=== PATIENT | female | born 1940 | race Caucasian/White ===

== ENCOUNTER 2025-01-20 13:29 | Inpatient (IN) ==
--- NOTE | 2025-01-20 14:03 | Emergency Department Note ---
Impression & Plan Atrial fibrillation with rapid ventricular response, Chest pain ED Provider Note NAME: BULMARO DONOHUE AGE: 84 SEX: F : 1940 ARRIVES VIA: Ambulance INFORMANT: Patient, family ED PROVIDER(S): Obdulio Dela Cruz MD CHIEF COMPLAINT: Chest pain MEDICAL DECISION MAKING: Patient presents due to concern for chest pain. IV was established and blood work was obtained. No active chest pain at the bedside. Patient was ordered home dose metoprolol succinate 100 mg p.o. as well as 5 mg IV of Lopressor. The patient did have slight improvement in her rate. No further chest pain. The patient has a normal white count H&H and platelet count kidney function is unremarkable. The patient was requesting to go home. Given the patient's relatively unchanged EKG do not think unreasonable to repeat troponin and reassess. Repeat troponin downward trending. I did speak the on-call cardiology service Dr. Morrow and after reviewing the patient's EKG stated that given the patient has had persistent elevated rates does recommend admission and treatment. Patient was ordered her evening dose of metoprolol succinate 50 mg as additional IV Lopressor. Critical Care: I have personally spent 37 minutes of critical care time in direct management of this patient. This includes bedside care, interpretation of diagnostic studies, and testing, discussion with consultants, patient, and family members, and other require inpatient management activities. This 37 minutes is in excess of all separately billable procedures. Discussion w/ other healthcare providers: Dr. Morrow cardiology Dr. Delgado inpatient medicine service Prior /Outside records reviewed: I reviewed part of a discharge summary from March 14, [address] Pierson. History of hypertension hyperlipidemia history of atypical chest pain with negative prior stress testing. A-fib tachybradycardia syndrome dual-chamber pacemaker who presented with chest pains and rapid A-fib. Patient did have an echo at that time which showed mild concentric LVH LV wall motion normal LV systolic function normal LVEF of 6065%. Patient did receive Cardizem and subsequently converted to sinus rhythm was to continue outpatient metoprolol 100 mg in the morning 50 in the evening also on Eliquis. Differential diagnosis: Cardiac ischemia, aortic dissection, pulmonary embolism, pneumothorax, pneumonia, pericarditis, myocarditis, GERD, cholecystitis, pancreatitis, musculoskeletal, as well as other pathologies were considered. Diagnostics, as interpreted by me: ECG: A-fib RVR, rate of 131, normal QRS duration, normal axis. No obvious ST elevations. T wave version in aVL. Possible Q wave inferiorly.Patient's EKG she has a change from being primarily paced to the A-fib with RVR. Overall morphology looks grossly unchanged from prior. T wave version in aVL appears old. A-fib RVR, rate of 119, normal QRS duration, left axis deviation, T wave version high lateral leads. No obvious STEMI. Cardiac monitoring: An order was placed for continuous cardiac monitoring. The monitor shows a rate of 116 with tachycardic and irregular irregular rhythm. Patient was placed on pulse oximetry Medical decision rules: none Imaging studies: I informally interpreted the patient's chest x-ray does not show obvious pneumonia or pneumothorax with formal report to follow. HPI: Patient presents due to concern for chest pains. The patient states that she was doing housework when she developed chest pain around 945 this morning. The patient states that she sat down to see if this would improve on its own but did not improve this calling 911. She states that 911 was busy but eventually did come to the house. They noted your to be 90% on room air. per nursing report they stated that maybe the patient had some dyspnea on exertion on the patient denies this at the bedside. No reported PND. She does follow with Yuliana Dye with cardiology through [facility]. Patient did not take her morning medications. The patient's chest pain was left-sided with radiation to central area heaviness. The patient states that its peak it was 10 out of 10. The patient did receive 324 of aspirin and 1 nitro as well as 0.25 of Ativan IV and currently has no chest pains. Patient states that she always have a little bit of right leg swelling when compared to the left but this is unchanged. No recent surgeries procedures or hospitalizations no recent prolonged car plane travel. Patient reportedly does have a history of anxiety. She denies any cough or fever. PAST MEDICAL HISTORY: See Below PAST SURGICAL HISTORY: See Below SOCIAL HISTORY: See Below HOME MEDICATIONS: See Below ALLERGIES: See Below VITALS: See Below PHYSICAL EXAMINATION: GENERAL: NAD, non-toxic. EYE EXAM: Normal conjunctiva. PERRL, no anisocoria and EOM's grossly intact w/o pain. OROPHARYNX: Moist mucus membranes, grossly normal dentition. NECK: Trachea midline, no stridor. Supple, no nuchal rigidity, no adenopathy, non-tender. No signs of meningismus. FROM of the neck with good chin to chest and neck extension. LUNGS: Clear to auscultation. Normal chest wall mechanics. HEART: Tachycardic and irregular irregular, no MRG. ABDOMEN: Abdomen soft, non-tender, no masses, no rebound or guarding. BACK: No CVA TTP. SKIN: No rashes and no bruising. UPPER EXTREMITIES: Upper extremities are grossly normal. LOWER EXTREMITIES: Grossly normal, no edema. No obvious asymmetry, negative Homans' sign bilaterally. NEURO EXAM: A&O x3, cranial nerves II-XII grossly intact, normal speech, moves all 4 extremities. Past Med/Surg History Problem List (Updated 01/20/25 @ 22:34 by Obdulio Dela Cruz MD) Chest pain (Acute) Atrial fibrillation with rapid ventricular response (Acute) Elevated brain natriuretic peptide (BNP) level (Acute) Atrial fibrillation with rapid ventricular response (Acute) Chest pain (Acute) Sensorineural hearing loss (SNHL) of left ear with restricted hearing of right ear Vertigo Sudden-onset sensorineural hearing loss Tachy-shahram syndrome Atrial fibrillation Vaginal prolapse Prolapse of bladder Hyperlipidemia Hypertension Hematuria Surgical History H/O: hysterectomy History of dilatation and curettage Hx of appendectomy Family History Mother Hypertension Father Bladder cancer Stomach cancer Son Kidney stones Social History Smoking Status: Never smoker Tobacco Type: Cigarettes Second Hand Exposure: No; Do You Dip or Chew Tobacco: No; Hx Alcohol Use: No Hx Substance Use: No Preferred Language: Armenian Communication Ability: Effective Reception Manager Required: No Beliefs That Will Affect Care: None Current Living Situation: Alone Feels Safe at Home: Yes Assistive Devices: Cane and Walker Allergies Allergies Allergy/AdvReac Type Severity Reaction Status Date / Time No Known Allergies Allergy Verified 01/20/25 18:15 Home Meds Home Medications Medication Instructions Recorded Confirmed amlodipine 5 mg tablet 5 mg PO DAILY 03/12/24 01/20/25 apixaban 5 mg tablet (Eliquis) 5 mg PO BID 03/12/24 01/20/25 hydrochlorothiazide 12.5 mg capsule 12.5 mg PO DAILY 03/12/24 01/20/25 losartan 100 mg tablet 100 mg PO DAILY 03/12/24 01/20/25 potassium citrate 10 mEq (1,080 10 meq PO DAILY 03/12/24 01/20/25 mg) tablet,extended release B-complex with vitamin C 1 tab PO DAILY 01/20/25 01/20/25 atorvastatin 40 mg tablet 40 mg PO DAILY 01/20/25 01/20/25 Previous Rx's Medication Instructions Recorded metoprolol succinate 100 mg 100 mg PO QAM #30 tabs 03/14/24 tablet,extended release 24 hr metoprolol succinate 50 mg 50 mg PO HS #30 tabs 03/14/24 tablet,extended release 24 hr Results & Data (ED) Vital Signs Vital Signs - 24 hr 01/20/25 13:45 01/20/25 13:50 01/20/25 13:50 Temperature 36.9 C Temperature Source Temporal Artery Scan Pulse Rate 120 H Pulse Rate [Right Brachial] Pulse Rate from SpO2 Sensor Pulse Rhythm [Right Brachial] Pulse Strength [Right Brachial] Respiratory Rate 24 Respiratory Effort / Characteristics SOB on Exertion SOB on Exertion Respiratory Depth Respiratory Pattern Blood Pressure 133/78 Blood Pressure [Right Arm] Blood Pressure Mean 96 Blood Pressure Mean [Right Arm] Blood Pressure Position [Right Arm] Pulse Oximetry 93 Oxygen Delivery Method Room Air Room Air Sepsis Recent Fever Within 48 Hours No Sepsis New/Unexplained Change in Mental Status No Sepsis Action Taken by Nursing No Action Required 01/20/25 14:08 01/20/25 14:13 01/20/25 14:23 Temperature Temperature Source Pulse Rate 121 H 127 H Pulse Rate [Right Brachial] Pulse Rate from SpO2 Sensor Pulse Rhythm [Right Brachial] Pulse Strength [Right Brachial] Respiratory Rate Respiratory Effort / Characteristics Respiratory Depth Respiratory Pattern Blood Pressure 133/78 Blood Pressure [Right Arm] Blood Pressure Mean Blood Pressure Mean [Right Arm] Blood Pressure Position [Right Arm] Pulse Oximetry 92 Oxygen Delivery Method Room Air Sepsis Recent Fever Within 48 Hours Sepsis New/Unexplained Change in Mental Status Sepsis Action Taken by Nursing 01/20/25 14:30 01/20/25 14:39 01/20/25 15:44 Temperature Temperature Source Pulse Rate 106 H Pulse Rate [Right Brachial] 126 H Pulse Rate from SpO2 Sensor 83 Pulse Rhythm [Right Brachial] Regular Pulse Strength [Right Brachial] Normal Respiratory Rate 20 20 Respiratory Effort / Characteristics Non-Labored Respiratory Depth Normal Respiratory Pattern Regular Blood Pressure 91/72 L Blood Pressure [Right Arm] 143/71 H Blood Pressure Mean 85 Blood Pressure Mean [Right Arm] 95 Blood Pressure Position [Right Arm] Lying Pulse Oximetry 93 95 Oxygen Delivery Method Room Air Sepsis Recent Fever Within 48 Hours Sepsis New/Unexplained Change in Mental Status Sepsis Action Taken by Nursing 01/20/25 17:00 01/20/25 17:02 Temperature Temperature Source Pulse Rate 118 H Pulse Rate [Right Brachial] 116 H Pulse Rate from SpO2 Sensor Pulse Rhythm [Right Brachial] Regular Pulse Strength [Right Brachial] Normal Respiratory Rate 18 Respiratory Effort / Characteristics Non-Labored Respiratory Depth Normal Respiratory Pattern Regular Blood Pressure 98/80 L Blood Pressure [Right Arm] 98/80 L Blood Pressure Mean Blood Pressure Mean [Right Arm] 86 Blood Pressure Position [Right Arm] Lying Pulse Oximetry 95 Oxygen Delivery Method Room Air Sepsis Recent Fever Within 48 Hours Sepsis New/Unexplained Change in Mental Status Sepsis Action Taken by Alf Medications Current Medication List: was personally reviewed by me Laboratory Data Attestation: I reviewed the patient's lab results. 01/20/25 Unknown 01/20/25 Unknown Lab Results 01/20/25 01/20/25 01/20/25 Range/Units 14:37 14:41 17:10 PT 10.9 (9.0-12.0) Seconds INR 1.0 (0.9-1.1) APTT 30 (21-31) Seconds PTT Ratio 1.1 Potassium 3.9 (3.5-5.1) mmol/L AST 18 (13-39) U/L Troponin I High Sens 8.5 (0-14) pg/ml Administered Medications Discontinued Medications Metoprolol Succinate (Metoprolol Succ 50mg Ext Rel Tab) 100 mg PO NOW STA Stop: 01/20/25 14:11 Last Admin: 01/20/25 14:42 Dose: 100 mg Documented By: DAYAN Metoprolol Succinate (Metoprolol Succ 50mg Ext Rel Tab) 50 mg PO NOW STA Stop: 01/20/25 18:35 Last Admin: 01/20/25 19:38 Dose: 50 mg Documented By: SHELL Metoprolol Tartrate (Metoprolol Tartrate 1 Mg/Ml Vial) 5 mg IV NOW STA Stop: 01/20/25 14:11 Last Admin: 01/20/25 14:23 Dose: 5 mg Documented By: DAYAN Metoprolol Tartrate (Metoprolol Tartrate 1 Mg/Ml Vial) 5 mg IV NOW STA Stop: 01/20/25 16:55 Last Admin: 01/20/25 17:02 Dose: 5 mg Documented By: SHELL Metoprolol Tartrate (Metoprolol Tartrate 1 Mg/Ml Vial) 5 mg IV NOW STA Stop: 01/20/25 18:35 Last Admin: 01/20/25 18:54 Dose: 5 mg Documented By: SHELL Imaging Data Radiologist's Impression: Chest X-Ray 01/20/25 13:45 XR chest 1V portable CLINICAL HISTORY: Chest pain, nonspecific COMPARISON STUDY: Chest radiograph March 12, 2024. FINDINGS: Left subclavian pacer is in place. Cardiomegaly is unchanged. There is pulmonary vascular congestion. No consolidation is identified to suggest pneumonia. There is no pneumothorax or pleural effusion. IMPRESSION: Cardiomegaly with pulmonary vascular congestion. ACT 112: Negative or not required by law. Electronically signed by: Wilman Sabillon M.D. 01/20/2025 2:47 PM Discharge Plan Visit Data Chief Complaint: Chest Pain Stated Complaint: CHEST PAIN, ANXIETY ED Provider: Obdulio Dela Cruz Discharge Problem: Atrial fibrillation with rapid ventricular response, Chest pain Discharge Problem: Chest pain Qualifiers: Chest pain type: unspecified Qualified Code(s): R07.9 - Chest pain, unspecified
[2025-01-20] MEDS: METOPROLOL TARTRATE 1 MG/ML VIAL IV STA ×3 (14:23→18:54)
[2025-01-20 14:35] LABS: Basophils # (auto) 0.06 K/uL (0.00-0.20); Basophils % (auto) 0.7 %; Eosinophils # (auto) 0.15 K/uL (0.00-0.50); Eosinophils % (auto) 1.8 %; Hematocrit (blood only) 43.2 % (37.0-47.0); Hemoglobin 14.3 g/dl (12.0-16.0); Immature Granulocytes # (auto) 0.01 K/uL (0.01-0.20); Immature Granulocytes % (auto) 0.1 %; Lymphocytes # (auto) 1.07 K/uL (1.20-3.40); Lymphocytes % (auto) 12.8 %; Mean Corpuscular Hemoglobin 28.9 pg (25.0-34.0); Mean Corpuscular Hgb Conc 33.1 g/dL (32.0-36.0); Mean Corpuscular Volume 87.3 fL (80.0-100.0); Mean Platelet Volume 12.3 fL (9.4-12.4); Monocytes # (auto) 0.67 K/uL (0.11-0.59); Neutrophils # (auto) 6.43 K/uL (1.40-6.50); Neutrophils % (auto) 76.6 %; Platelet Count 148 K/uL (130-400); Platelet Estimate Normal (Normal); RDW Coefficient of Variation 13.4 % (11.5-14.5); RDW Standard Deviation 42.4 fL (36.4-46.3); Red Blood Count 4.95 M/uL (4.20-5.40); White Blood Count 8.39 K/ul (4.8-10.8)
[2025-01-20 14:37] LABS: Alanine Aminotransferase 17 U/L (7-52); Albumin Globulin Ratio 1.2 (0.9-2); Albumin Level 4.3 gm/dl (3.4-5.0); Alkaline Phosphatase 47 U/L (34-104); Anion Gap 5 (3-11); BUN Creatinine Ratio 20.8 (10-20); Blood Urea Nitrogen 20 mg/dl (6-23); Calcium 9.9 mg/dl (8.6-10.3); Carbon Dioxide 28 mmol/L (21-32); Chloride 106 mmol/L (98-107); Creatinine Clr Calc Pharmacy 47.2 ml/min; Globulin 3.6 gm/dl (2.5-4.0); Glucose 114 mg/dl (70-99(Fasting)); Magnesium 2.1 mg/dl (1.7-2.4); Sodium 139 mmol/L (136-145); Total Protein 7.9 gm/dl (6.0-8.3)
[2025-01-20 14:41] LABS: Troponin I High Sensitivity 5.4 pg/ml (0-14)
[2025-01-20] MEDS: METOPROLOL SUCC 50MG EXT REL TAB PO STA ×2 (14:42→19:38)
--- NOTE | 2025-01-20 14:48 | XRay Report ---
XR chest 1V portable CLINICAL HISTORY: Chest pain, nonspecific COMPARISON STUDY: Chest radiograph March 12, 2024. FINDINGS: Left subclavian pacer is in place. Cardiomegaly is unchanged. There is pulmonary vascular c ongestion. No consolidation is identified to suggest pneumonia. There is no pneumothorax or pleural e ffusion. IMPRESSION: Cardiomegaly with pulmonary vascular congestion. ACT 112: Negative or not required by law. Electronically signed by: Wilman Sabillon M.D. 01/20/2025 2:47 PM
--- NOTE | 2025-01-20 15:33 | Electrocardiogram Report ---
Test Reason : Blood Pressure : */* mmHG Vent. Rate : 131 BPM Atrial Rate : * BPM P-R Int : * ms QRS Dur : 86 ms QT Int : 314 ms P-R-T Axes : * -23 134 degrees QTcB Int : 463 ms Atrial fibrillation with rapid ventricular response Left ventricular hypertrophy with repolarization abnormality Poor R wave progression, consider anterior LA vs. lead placement vs. LVH Abnormal ECG When compared with ECG of 14-Mar-2024 05:43, Atrial fibrillation has replaced Sinus rhythm Vent. rate has increased by 65 bpm Confirmed by Adam Downey ([id number]) on 01/20/2025 3:32:46 PM Referred By: Confirmed By: Adam Downey
[2025-01-20 15:41] LABS: Potassium 3.9 mmol/L (3.5-5.1)
[2025-01-20 15:52] LABS: Partial Thromboplastin Ratio 1.1; Partial Thromboplastin Time 30 Seconds (21-31); Prothrombin Time 10.9 Seconds (9.0-12.0)
[2025-01-20 18:15] LABS: Thyroid Stimulating Hormone 1.127 uIu/ml (0.300-4.500)
--- NOTE | 2025-01-20 18:57 | History & Physical Report ---
Date of Service January 20, 2025 Assessment & Plan (1) Atrial fibrillation with rapid ventricular response: Plan Pt is an 84year-old female with past medical history significant for labile hypertension, hyperlipidemia, history of atypical chest pain with negative stress testing, history of paroxysmal atrial fibrillation, tachybradycardia syndrome s/p dual-chamber pacemaker on September 23, 2022, history of acute vertigo, Menieres who presented with concern for chest pain. Chest Pain Atrial fibrillation with RVR Hx of tachybradycardia syndrome s/p dual-chamber pacemaker Pt presenting with chest pain EKG noting atrial fibrillation with RVR Trop x2 negative, downtrending Echo from 2023 reviewed, consider update TSH normal Pt notes she did not take home metoprolol today In the ED, received three doses of Lopressor 5mg IV and oral dose of total Topr ol XL 150mg received aspirin, nitro and Ativan en route to the hospital with improvement of her chest pain Holding home Eliquis tonight, started on IV heparin Cardiology consulted, appreciate recs Hypertension Pt on metoprolol 100mg in AM and 50mg in PM, amlodipine 5mg, HCTZ 12.5mg and losartan 100mg daily BP trending lower Holding AM HCTZ and losartan- monitor BP and resume as soon as able Continue other home meds as ordered Diet: HH DVT prophylaxis: On heparin, holding home Eliquis CODE STATUS: wants CPR and defib but DNI Dispo: admit to PCU/tele History of Present Illness Chief Complaint: chest pain Primary Care Provider: Daniel Madrid DO Pt is an 84year-old female with past medical history significant for labile hypertension, hyperlipidemia, history of atypical chest pain with negative stress testing, history of paroxysmal atrial fibrillation, tachybradycardia syndrome s/p dual-chamber pacemaker on September 23, 2022, history of acute vertigo, Menieres who presented with concern for chest pain. Patient states that she was active this morning when the chest pain started and it was not relieved with rest. States she did not take her medications this morning. Did call 911 to take her to the hospital and she did receive Ativan, aspirin and nitro with noted improvement in her symptoms. She also received multiple doses of IV Lopressor 5 mg in the emergency room as well as her home po metoprolol dosing for the day. At the time of exam she was resting comfortably and denied acute concerns. Prior to ED, cardiology was consulted and contacted and recommended admission for further evaluation and management. Allergies Allergy/AdvReac Type Severity Reaction Status Date / Time No Known Allergies Allergy Verified 01/20/25 18:15 Home Medications Medication Instructions Recorded Confirmed Type amlodipine 5 mg tablet 5 mg PO DAILY 03/12/24 01/20/25 History apixaban 5 mg tablet (Eliquis) 5 mg PO BID 03/12/24 01/20/25 History hydrochlorothiazide 12.5 mg capsule 12.5 mg PO DAILY 03/12/24 01/20/25 History losartan 100 mg tablet 100 mg PO DAILY 03/12/24 01/20/25 History potassium citrate 10 mEq (1,080 10 meq PO DAILY 03/12/24 01/20/25 History mg) tablet,extended release metoprolol succinate 100 mg 100 mg PO QAM #30 tabs 03/14/24 01/20/25 Rx tablet,extended release 24 hr metoprolol succinate 50 mg 50 mg PO HS #30 tabs 03/14/24 01/20/25 Rx tablet,extended release 24 hr B-complex with vitamin C 1 tab PO DAILY 01/20/25 01/20/25 History atorvastatin 40 mg tablet 40 mg PO DAILY 01/20/25 01/20/25 History Past Med/Surg History Problem List (Updated 04/14/24 @ 00:07 by Carine Daemon) Elevated brain natriuretic peptide (BNP) level (Acute) Atrial fibrillation with rapid ventricular response (Acute) Chest pain (Acute) Sensorineural hearing loss (SNHL) of left ear with restricted hearing of right ear Vertigo Sudden-onset sensorineural hearing loss Tachy-shahram syndrome Atrial fibrillation Vaginal prolapse Prolapse of bladder Hyperlipidemia Hypertension Hematuria Surgical History H/O: hysterectomy History of dilatation and curettage Hx of appendectomy Family History Mother Hypertension Father Bladder cancer Stomach cancer Son Kidney stones Social History Smoking Status: Never smoker Tobacco Type: Cigarettes Second Hand Exposure: No; Do You Dip or Chew Tobacco: No; Hx Alcohol Use: No Hx Substance Use: No Preferred Language: Mohawk Communication Ability: Effective Personnel Director Required: No Beliefs That Will Affect Care: None Current Living Situation: Alone Feels Safe at Home: Yes Assistive Devices: Cane and Walker Review of Systems Review of Systems: All systems reviewed & are unremarkable except as noted in Subjective Physical Exam Physical Exam: General: Alert, oriented. No acute distress Skin: No noted rashes or bruises Psych: Appropriate mood and affect HEENT: NC/AT Chest: Nontender to palpation. CV: irregular Resp: Breath sounds clear bilaterally, no increased effort of breathing Abdomen: Soft, nontender Extremities: Trace edema in lower extremities bilaterally. Results & Data Results & Data Vital Signs (Past 12 Hours) Vital Signs Temp Pulse Pulse Resp BP BP Pulse Ox 01/20/25 17:02 118 H 98/80 L 01/20/25 17:00 116 H 18 98/80 L 95 01/20/25 15:44 126 H 20 143/71 H 95 01/20/25 14:39 106 H 20 93 01/20/25 14:30 91/72 L 01/20/25 14:23 127 H 133/78 01/20/25 14:13 121 H 01/20/25 14:08 92 01/20/25 13:50 36.9 C 120 H 24 133/78 93 01/20/25 13:45 O2 Del Method 01/20/25 17:02 01/20/25 17:00 Room Air 01/20/25 15:44 Room Air 01/20/25 14:39 01/20/25 14:30 01/20/25 14:23 01/20/25 14:13 01/20/25 14:08 Room Air 01/20/25 13:50 Room Air 01/20/25 13:45 Room Air
--- OUTSIDE RECORDS SUMMARY | 2025-01-21 00:01 | External Medical Summary | Summary of Care ---
Author Name Unknown Organization [facility] Address [address] [place] [address] Phone [phone] Care Team Providers Care Hydrostatic Tester Name Role Phone CheleDaniel de jesus Primary Care Provider +1 [phone] Reason for Visit * Reason Comments Outpatient Testing Encounter Details Date Type Department Care Team (Late st Contact Info) Description 01/04/2025 8:40 AM EDT Laboratory Laboratory [address] [place] [address] [facility] Lab [address] [place] [address] Gouty nephropathy; Dyslipidemia, goal LDL below 160; SAPHO syndrome (HCC); HTN, goal below 140/90 Allergies No known active allergiesdocumented as of this encounter (statuses as of 01/04/2025) Medications Atorvastatin Calcium 40 MG Oral Tablet 1 tablet daily Act anum Estrogens, Conjugated 0.625 MG/GM Vaginal Cream (Premarin) Administer 0.5 g into the vagina once a day Thursday and only. Use 0.5 g with applicator at bedtime 30 g 6 1 Active LORazepam 0.5 MG Oral Tablet (Ativan) 2 Active Potassium Citrate ER 10 MEQ (1080 MG) Oral Tablet Extended Release (Urocit-K) Take 1 Tablet by mouth every other day. 2 Active Calcium+D3 600-20 MG-MCG Oral Tablet (Calcium Carb-Cholecalcife rol) Take by mouth 1 Tablet daily . Active Losartan Potassium 100 MG Oral Tablet (Cozaar) Take 1 Tablet by mouth in the morning. 4 Active Metoprolol Succinate ER 50 MG Oral Tablet Extended Release 24 Hour (Toprol XL) Take 2 Tablets by mouth daily AND 1 Tablet at bedtime. 270 Tablet 3 4 Active Apixaban 5 MG Oral Tablet (Eliquis)Indicati ons:Paroxysmal atrial fibrillation (HCC) Take 1 Tablet by mouth in the morning and 1 Tablet before bedtime. 180 Tablet 3 4 Active amLODIPine Besylate 5 MG Oral Tablet (Norvasc)Indicati ons:HTN, goal below 140/90 Take 1 Tablet by mouth in the morning. 90 Tablet 3 4 Active hydroCHLOROthiazi de 12.5 MG Oral CapsuleIndication s:Paroxysmal atrial fibrillation (HCC),Tachy-shahram syndrome (HCC),Cardiac pacemaker in situ,HTN, goal below 140/90,Hyperlipem ia, mixed,Vertigo Take 1 Capsule by mouth in the morning. 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 Cystocele, lateral 08/27/2020 Rectocele 08/27/2020 Vaginal atrophy 08/27/2020 Feeling of incomplete bladder emptying 0 Constipation 08/27/2020 documented as of this encounter (statuses as of 01/04/2025) Social History Tobacco Use Types Packs/Day Years Used Date Smoking Tobacco: Former Smokeless Tobacco: Never Alcohol Use Standard Drinks/Week Comments No 0 (1 standard drink = 0.6 oz pur e alcohol) Comments Unknown Sex and Gender Information Value Date Recorded Sex Assigned at Not on file Legal Sex Female 5:27 AM EST Gender Identity Not on file Sexual Orientation Not on file documented as of this encounter Plan of Treatment Pending Results Name Type Priority Associated Diagnoses Date /Time BASIC METABOLIC PANEL Lab Routine Gouty nephropathy Dyslipidemia, goal LDL below 160 SAPHO syndrome (HCC) HTN, goal below 140/90 01/04/2025 8:44 AM EDT LDL CHOLESTEROL (DIRECT MEASURE) Lab Routine Gouty nephropathy Dyslipidemia, goal LDL below 160 SAPHO syndrome (HCC) HTN, goal below 140/90 01/04/2025 8:44 AM EDT HEPATIC FUNCTION PANEL Lab Routine Gouty nephropathy Dyslipidemia, goal LDL below 160 SAPHO syndrome (HCC) HTN, goal below 140/90 01/04/2025 8:44 AM EDT LIPID PANEL WITH DIRECT LDL IF TG IS HIGH Lab Routine Gouty nephropathy Dyslipidemia, goal LDL below 160 SAPHO syndrome (HCC) HTN, goal below 140/90 01/04/2025 8:44 AM EDT TSH Lab Routine Gouty nephropathy Dyslipidemia, goal LDL below 160 SAPHO syndrome (HCC) HTN, goal below 140/90 01/04/2025 8:44 AM EDT CBC WITH WBC DIFFERENTIAL Lab Routine Gouty nephropathy Dyslipidemia, goal LDL below 160 SAPHO syndrome (HCC) HTN, goal below 140/90 01/04/2025 8:44 AM EDT CBC Lab Routine Gouty nephropathy Dyslipidemia, goal LDL below 160 SAPHO syndrome (HCC) HTN, goal below 140/90 01/04/2025 8:44 AM EDT DIFFERENTIAL, AUTOMATED Lab Routine Gouty nephropathy Dyslipidemia, goal LDL below 160 SAPHO syndrome (HCC) HTN, goal below 140/90 01/04/2025 8:44 AM EDT Health Maintenance Due Date Last Done Comments Depression Screening 1952 Albumin/Creatinine Ratio 1958 DTap/Tdap Vaccines (1 - Tdap) 1959 Zoster Vaccines (1 of 2) 1990 COVID-19 Vaccine (1 - season) 2024 Influenza Vaccine (FLU shot) (#1) 2024 GFR 08/05/2025 08/05/2024, 12/2023, 12/28/2023, Additional history exists DXA Scan 10/28/2029 10/28/2022, 03/2022, 02/05/2017 Pneumococcal Vaccine: 50+ Years Completed 02/08/2018, 11/23/2015, 01/02/2004 HPV (Gardasil) Vaccine Aged Out No lo nger eligible based on patient's age to complete this topic Hepatitis B Vaccine Aged Out No longe r eligible based on patient's age to complete this topic MENINGOCOCCAL (MENACTRA/MENVEO) Aged Out No longer eligible based on patient's age to complete this topic Meningitis B Vaccine (Bexsero/Trumemba) Aged Out No longer eligible based on patient's age to complete this topic documented as of this encounter Medical Devices Not on filedocumented as of this encounter Visit Diagnoses Diagnosis Gouty nephropathy Gouty nephropathy, unspecified Dyslipidemia, goal LDL below 160 Other and unspecified hyperlipidemia SAPHO syndrome (HCC) Traumatic spondylopathy HTN, goal below 140/90 Unspecified essential hypertension documented in this encounter Care Teams Hydrostatic Tester Relationship Specialty Start Date End Date Daniel Madrid DO [address] [id number] PCP - General Family Medicine 08/27/20 documented as of this encounter
--- OUTSIDE RECORDS SUMMARY | 2025-01-21 00:02 | External Medical Summary ---
Author Name Unknown Address Unknown Organization [id number]:[place] [facility] [place] [address] [place] [address] Laboratory Report Ordering Provider Test Date Status POLLY CARUSO 01/04/2025 08:44:43 Final Observation Date Value Abnormality Reference (Units ) Status BUN 01/04/2025 08:44:43 22 Above high normal 6-20 (mg/dL) Final Creatinine 01/04/2025 08:44:43 0.9 0.5-1.0 (mg/dL) Final Glomerular filtration rate/1.73 sq M.predicted [Volume Rate/Area] in Serum, Plasma or Blood by Creatinine-based formula (CKD-EPI) 01/04/2025 08:44:43 61 >=60 (mL/min) Final eGFR is calculated based on the CKD-EPI 2020 equation. Sodium 01/04/2025 08:44:43 140 135-146 (m mol/L) Final Potassium 01/04/2025 08:44:43 4.0 3.5-5.1 (m mol/L) Final Cl 01/04/2025 08:44:43 104 98-107 (mm ol/L) Final CO2 01/04/2025 08:44:43 25 22-32 (mmo l/L) Final Anion gap 01/04/2025 08:44:43 11 7-15 (mmol /L) Final Glucose 01/04/2025 08:44:43 100 70-120 (mg /dL) Final Calcium 01/04/2025 08:44:43 9.8 8.4-10.2 ( mg/dL) Final Performing Location [facility] [place] [address] [place] [address]
--- OUTSIDE RECORDS SUMMARY | 2025-01-21 00:02 | External Medical Summary ---
Author Name Unknown Address Unknown Organization [id number]:[facility]ORY [facility] [place] - [address] [place] [address] Laboratory Report Ordering Provider Test Date Status ZULYSHWETALAMAR 01/04/2025 08:44:43 Final Observation Date Value Abnormality Reference (Units ) Status Triglyceride 01/04/2025 08:44:43 146 <=174 ( mg/dL) Final Triglyceride Reference Range s (mg/dL):
<150 Acceptable
150-174 Borderline high
175-499 High
>=500 Very high Cholesterol 01/04/2025 08:44:43 146 <200 (mg /dL) Final Total Cholesterol Reference Ranges (mg/dL):
<200 Desirable
200-239 Borderline high
>=240 High HDL 01/04/2025 08:44:43 44 Below low normal >49 (mg/dL) Final HDL Cholesterol Reference Ra nges (mg/dL):
>=60 High (Desirable)
<50 Low (Undesirable) For Females
<40 Low (Undesirable) For Males NON-HDL CHOLESTEROL 01/04/2025 08:44:43 102 <=159 (mg/dL) Final Non-HDL Cholesterol Referenc e Range (mg/dL):
<100 Target level for high risk ASCVD patient
<130 Optimal for general population
130-159 Near optimal for general population
160-189 Borderline High
190-219 High
>=220 Very High LDL, (calculated) 01/04/2025 08:44:43 73 <= 129 (mg/dL) Final LDL Cholesterol Reference Ra nges (mg/dL):
<70 Target level for high risk ASCVD patient
<100 Optimal for general population
100-129 Near optimal for general population
130-159 Borderline high
160-189 High
>=190 Very high Performing Location LABORATORY [facility] [place] - [address] [facility] [address]
--- OUTSIDE RECORDS SUMMARY | 2025-01-21 00:02 | External Medical Summary | Summary of Care ---
Author Name Unknown Organization [facility] Address [address] [place] [address] Phone [phone] Care Team Providers Care Senior Technical Trainer Name Role Phone Daniel Madrid Primary Care Provider [phone] Reason for Visit * Reason Onset Date Comments Test Results 08/15/2024 Encounter Details Date Type Department Care Team (Late st Contact Info) Description 08/15/2024 Telephone Cardiology, [facility] [address] [place] [address] Yuliana Dye PA-C [address] [place] [id number] Test Results Allergies No known active allergiesdocumented as of this encounter (statuses as of 08/15/2024) Medications Medication Sig Dispensed Refills Start Date End Date Status Atorvastatin Calcium 40 MG Oral Tablet 1 tablet daily Act anum Estrogens, Conjugated 0.625 MG/GM Vaginal Cream (Premarin) Administer 0.5 g into the vagina once a day Thursday and only. Use 0.5 g with applicator at bedtime 30 g 6 12/17/2020 Active LORazepam 0.5 MG Oral Tablet (Ativan) 10/22/2021 Acti ve Potassium Citrate ER 10 MEQ (1080 MG) Oral Tablet Extended Release (Urocit-K) Take 1 Tablet by mouth every other day. 11/02/2021 Active Calcium+D3 600-20 MG-MCG Oral Tablet (Calcium Carb-Cholecalciferol ) Take by mouth 1 Tablet daily . Active Losartan Potassium 100 MG Oral Tablet (Cozaar) Take 1 Tablet by mouth in the morning. 02/17/2024 Active Metoprolol Succinate ER 50 MG Oral Tablet Extended Release 24 Hour (Toprol XL) Take 2 Tablets by mouth daily AND 1 Tablet at bedtime. 270 Tablet 3 04/11/2024 Active Apixaban 5 MG Oral Tablet (Eliquis)Indications :Paroxysmal atrial fibrillation (HCC) Take 1 Tablet by mouth in the morning and 1 Tablet before bedtime. 180 Tablet 3 06/21/2024 Active amLODIPine Besylate 5 MG Oral Tablet (Norvasc)Indications :HTN, goal below 140/90 Take 1 Tablet by mouth in the morning. 90 Tablet 3 06/21/2024 Active hydroCHLOROthiazide 12.5 MG Oral CapsuleIndications:P aroxysmal atrial fibrillation (HCC),Tachy-shahram syndrome (HCC),Cardiac pacemaker in situ,HTN, goal below 140/90,Hyperlipemia, mixed,Vertigo Take 1 Capsule by mouth in the morning. 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 Cystocele, lateral 08/27/2020 Rectocele 08/27/2020 Vaginal atrophy 08/27/2020 Feeling of incomplete bladder emptying 0 Constipation 08/27/2020 documented as of this encounter (statuses as of 08/15/2024) Social History Tobacco Use Types Packs/Day Years Used Date Smoking Tobacco: Former Smokeless Tobacco: Never Alcohol Use Standard Drinks/Week Comments No 0 (1 standard drink = 0.6 oz pur e alcohol) Sex and Gender Information Value Date Recorded Sex Assigned at Not on file Gender Identity Not on file Sexual Orientation Not on file Job Start Date Occupation Industry Not on file Not on file Not on file documented as of this encounter Miscellaneous Notes * Telephone Encounter - Bolivar Bah LPN - 08/15/2024 3:55 PM EDT Called patient and informed of Yuliana's message. Patient verbalized understanding. ----- Message from Yuliana Dye sent at 08/15/2024 3:52 PM EDT ----- Improved renal function and electrolytes Looks like prior recommendations of increasing water intake improved her labs. Continue to concentrate on adequate hydration No changes at this time documented in this encounter Plan of Treatment Upcoming Encounters Date Type Department Care Team (Late st Contact Info) Description 12/28/2024 9:30 AM EDT Office Visit Cardiology, [facility] [address] [place] [address] Yuliana Dye PA-C [address] [place] [address] Health Maintenance Due Date Last Done Comments Depression Screening 1952 Albumin/Creatinine Ratio 1958 DTap/Tdap Vaccines (1 - Tdap) 1959 Zoster Vaccines (1 of 2) 1990 COVID-19 Vaccine (1 - season) 2024 Influenza Vaccine (FLU shot) (#1) 2024 GFR 08/05/2025 08/05/2024, 12/2023, 12/28/2023, Additional history exists DXA Scan 10/28/2029 10/28/2022, 070 03/2022, 02/05/2017 Pneumococcal Vaccine: 65+ Years Completed 02/08/2018, 11/23/2015, 01/02/2004 HPV (Gardasil) [...] Not on filedocumented as of this encounter Care Teams Senior Technical Trainer Relationship Specialty Start Date End Date Daniel Madrid DO [address] [place] [address] PCP - General Family Medicine 08/27/20 documented as of this encounter
--- OUTSIDE RECORDS SUMMARY | 2025-01-21 00:02 | External Medical Summary | Summary of Care ---
Author Name Unknown Organization [facility] Address [address] [place] [address] Phone [phone] Care Team Providers Care Vacuum Truck Driver Name Role Phone Daniel Madrid Primary Care Provider [phone] Encounter Details Date Type Department Care Team (Late st Contact Info) Description 11/07/2024 Population Health External Data Unspecified Department Allergies No known active allergiesdocumented as of this encounter (statuses as of 11/07/2024) Medications Atorvastatin Calcium 40 MG Oral Tablet [...] as of this encounter (statuses as of 11/07/2024) Active Problems Problem Noted Date Diagnosed Date HTN, goal below 140/90 06/21/2024 Paroxysmal atrial fibrillation 06/21/2024 Cardiac pacemaker in situ 06/21/2024 Dyslipidemia, goal LDL below 100 06/21/2024 Advanced directives, counseling/discussion 08/09 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 Cystocele, lateral 08/27/2020 Rectocele 08/27/2020 Vaginal atrophy 08/27/2020 Feeling of incomplete bladder emptying 0 Constipation 08/27/2020 documented as of this encounter (statuses as of 11/07/2024) Social History Tobacco Use Types Packs/Day Years [...] as of this encounter Plan of Treatment Upcoming Encounters Date Type Department Care Team (Late st Contact Info) Description 12/28/2024 9:30 AM EDT Office Visit Cardiology, [facility] [address] [place] [address] Yuliana Dye PA-C [address] [place] [address] Health Maintenance Due Date Last Done Comments Depression Screening 1952 Albumin/Creatinine Ratio 1958 DTap/Tdap Vaccines (1 - Tdap) 1959 Zoster Vaccines (1 of 2) 1990 COVID-19 Vaccine (1 - season) 2024 Influenza Vaccine (FLU shot) (#1) 2024 GFR 08/05/2025 08/05/2024, 09/0 12/2023, 12/28/2023, Additional history exists DXA Scan 10/28/2029 10/28/2022, 070 03/2022, 02/05/2017 Pneumococcal Vaccine: 50+ Years Completed [...] filedocumented as of this encounter Care Teams Vacuum Truck Driver Relationship Specialty Start Date End Date Daniel Madrid DO [address] [address] PCP - General Family Medicine 08/27/20 documented as of this encounter
--- OUTSIDE RECORDS SUMMARY | 2025-01-21 00:02 | External Medical Summary ---
Author Name Unknown Address Unknown Organization [id number]:[facility] [place] - [address] [place] [address] Laboratory Report Ordering Provider Test Date Status POLLY CARUSO 01/04/2025 08:44:43 Final Observation Date Value Abnormality Reference (Units ) Status LDL, (direct) 01/04/2025 08:44:43 81 <=129 (mg/dL) Final LDL Cholesterol Reference Ra nges (mg/dL):
<70 � � Target level for high risk ASCVD patient
<100 � �Optimal for general population
100-129 Near optimal for general population
130-159 Borderline high
160-189 High
>=190 � Very high Performing Location LABORATORY [facility] - [address] [place] [address]
--- OUTSIDE RECORDS SUMMARY | 2025-01-21 00:02 | External Medical Summary ---
Author Name Unknown Address Unknown Organization [id number]:LABORATORY [facility] [place] - [address] [place] [address] Laboratory Report Ordering Provider Test Date Status POLLY CARUSO 01/04/2025 08:44:43 Final Observation Date Value Abnormality Reference (Units ) Status Albumin 01/04/2025 08:44:43 4.3 3.8-5.0 (g/dL) Final AST (Aspartate aminotransferase) 01/04/2025 08:44:43 17 10-35 (U/L) Final Alk Phos 01/04/2025 08:44:43 60 35-130 (U/L) Final ALT (Alanine aminotransferase) 01/04/2025 08:44:43 27 10-35 (U/L) Final Bilirubin, Total 01/04/2025 08:44:43 0.8 <=1.2 (mg/dL) Final Bilirubin, Direct 01/04/2025 08:44:43 0.3 0.0-0.3 (mg/dL) Final Protein 01/04/2025 08:44:43 7.2 6.0-8.3 (g/dL) Final Performing Location LABORATORY [facility] [place] - [address] [place] [address]
--- OUTSIDE RECORDS SUMMARY | 2025-01-21 00:02 | External Medical Summary | Summary of Care ---
Author Name Unknown Organization [facility] Address [address] [place] [address] Phone [phone] Care Team Providers Care Senior Director Of [employer] Name Role Phone CheleDaniel de jesus Primary Care Provider [phone] Reason for Visit * Reason Comments Outpatient Testing Encounter Details Date Type Department Care Team (Late st Contact Info) Description 01/04/2025 8:40 AM EDT Laboratory Laboratory [address] [place] [phone] [facility] Lab [address] [place] [address] Gouty nephropathy; Dyslipidemia, goal LDL below 160; [...] hypertension documented in this encounter Care Teams Senior Director Of [employer] Relationship Specialty Start Date End Date Daniel Madrid DO [address] [phone] PCP - General Family Medicine 08/27/20 documented as of this encounter
--- OUTSIDE RECORDS SUMMARY | 2025-01-21 00:02 | External Medical Summary | Summary of Care ---
Author Name Unknown Organization [facility] Address [address] [place] [address] Phone [phone] Care Team Providers Care Metal Fabricating Supervisor Name Role Phone CheleDaniel de jesus Primary Care Provider +1 [phone] Reason for Visit * Reason Comments Follow Up Encounter Details Date Type Department Care Team (Late st Contact Info) Description 12/28/2024 9:30 AM EDT Office Visit Cardiology, [facility] [address] [place] [address] Yuliana Dye PA-C [address] [place] [address] HTN, goal below 140/90*; Dyslipidemia, goal LDL below 100; Paroxysmal atrial fibrillation (HCC); Cardiac pacemaker in situ Allergies No known active allergiesdocumented as of this encounter (statuses as of 12/28/2024) Medications Atorvastatin Calcium 40 MG Oral Tablet [...] as of this encounter (statuses as of 12/28/2024) Active Problems Problem Noted Date Diagnosed Date HTN, goal below 140/90 06/21/2024 Paroxysmal atrial fibrillation 06/21/2024 Cardiac pacemaker in situ 06/21/2024 Dyslipidemia, goal LDL below 100 06/21/2024 Advanced directives, counseling/discussion 08/09 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 Cystocele, lateral 08/27/2020 Rectocele 08/27/2020 Vaginal atrophy 08/27/2020 Feeling of incomplete bladder emptying 0 Constipation 08/27/2020 documented as of this encounter (statuses as of 12/28/2024) Social History Tobacco Use Types Packs/Day Years [...] on file documented as of this encounter Last Filed Vital Signs Vital Sign Reading Time Taken Comments Blood Pressure 172/100 12/28/2024 9:30 AM EDT Pulse 104 12/28/2024 9:30 AM EDT Temperature - - Respiratory Rate 16 12/28/2024 9:30 AM EDT Oxygen Saturation - - Inhaled Oxygen Concentration - - Weight 87 kg (191 lb 12 oz) 12/28/2024 9:30 AM E DT Height - - Body Mass Index 32.91 12/28/2023 9:20 AM EDT documented in this encounter Patient Instructions * Patient Instructions* Yuliana Dye PA-C - 12/28/2024 9:55 AM EDT Monitor your blood pressure at home over the next several weeks, at least 2 hours after your morning medications. Sit quietly for 5-10 minutes before taking your blood pressure. Record the readings and call our office to give report/readings in a few weeks. documented in this encounter Progress Notes * Yuliana Dye PA-C - 12/28/2024 9:36 AM EDT Images from the original note were not included. 12/28/2024 Cardiology F/U: Patient is an 84-year-old female here today for routine cardiology follow-up. Last clinic evaluation approximately 6 months ago with the undersigned. Primary business reporting developer is Dr. Britton. 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 Escobar ([facility] MRI [id number]) History of acute vertigo, no stroke on brain MRI. Follows with ENT History of Present Illness The patient, with hypertension and a history of paroxysmal atrial fibrillation, presents with elevated blood pressure. She has elevated blood pressure, with a home reading of 171/71 mmHg yesterday after taking her medications. She did not take her medications this morning due to having only eaten half a muffin. Her current medications include amlodipine, hydrochlorothiazide, metoprolol (two in the morning and one in the evening), and losartan 100 mg. She has an upcoming appointment with her primary care physician next month, where blood work is scheduled. She experiences sharp, sporadic chest pains lasting up to 20 minutes, described as 'lightning-like'. These pains do not radiate to her arms or back and are not associated with sweating or shortness of breath. The pain does not occur with exertion. She monitors her pacemaker during these episodes and has not noticed any irregularities. She notes swelling in her right leg and foot, attributing it to her varicose veins, which developedafter having five children. She is trying to watch her salt intake but admits to occasional lapses. She has a history of paroxysmal atrial fibrillation and tachy-shahram syndrome, for which a pacemakerwas implanted in 2021. She has not experienced any atrial fibrillation since the last episode a year and a half ago. Her pacemaker is monitored remotely every three months, with the last transmissionreceived on November 11, 2024. She has been mostly homebound during the winter due to ice but has recently started walking again. [place]. No exertional chest pain, shortness of breath, palpitations, dizziness, syncope or near syncope. Noorthopnea, PND, or increased lower extremity edema. No fever, chills, cough, hematochezia, melena, or hemoptysis. Review of Systems: See HPI for pertinent positives. All others negative, other than those noted in HPI. Patient Active Problem List Diagnosis Advanced directives, counseling/discussion Prolapse of vaginal vault after hysterectomy Cystocele, lateral Rectocele Vaginal atrophy Feeling of incomplete bladder emptying Constipation HTN, goal below 140/90 Paroxysmal atrial fibrillation (HCC) Cardiac pacemaker in situ Dyslipidemia, goal LDL below 100 Social History Tobacco Use Smoking status: Former Smokeless tobacco: Never Vaping Use Vaping status: Never Used Substance Use Topics Alcohol use: No Drug use: No Review of patient's allergies indicates: No Known Allergies Current Outpatient Medications Medication Sig Dispense Refill hydroCHLOROthiazide 12.5 MG Oral Capsule Take 1 Capsule by mouth in the morning. 90 Capsule 3 amLODIPine Besylate 5 MG Oral Tablet (Norvasc) Take 1 Tablet by mouth in the morning. 90 Tablet 3 Apixaban 5 MG Oral Tablet (Eliquis) Take 1 Tablet by mouth in the morning and 1 Tablet before bedtime. 180 Tablet 3 Metoprolol Succinate ER 50 MG Oral Tablet Extended Release 24 Hour (Toprol XL) Take 2 Tablets by mouth daily AND 1 Tablet at bedtime. 270 Tablet 3 Losartan Potassium 100 MG Oral Tablet (Cozaar) Take 1 Tablet by mouth in the morning. Calcium+D3 600-20 MG-MCG Oral Tablet (Calcium Carb-Cholecalciferol) Take by mouth 1 Tablet daily . LORazepam 0.5 MG Oral Tablet (Ativan) Potassium Citrate ER 10 MEQ (1080 MG) Oral Tablet Extended Release (Urocit-K) Take 1 Tablet by mouth every other day. Estrogens, Conjugated 0.625 MG/GM Vaginal Cream (Premarin) Administer 0.5 g into the vagina once a day Thursday and only. Use 0.5 g with applicator at bedtime 30 g 6 Atorvastatin Calcium 40 MG Oral Tablet 1 tablet daily No current facility-administered medications for this visit. Physical Exam BP 172/100 (BP Site: Left Arm) | Pulse 104 | Resp 16 | Wt 87 kg (191 lb 12 oz) | BMI 32.91 kg/m² |BSA 1.98 m² Blood pressure my repeat 160/90 Wt Readings from Last 3 Encounters: 12/28/24 87 kg (191 lb 12 oz) 06/21/24 85.3 kg (188 lb) 03/18/24 84.5 kg (186 lb 3.2 oz) BP Readings from Last 4 Encounters: 12/28/24 172/100 06/21/24 148/82 03/18/24 152/94 12/28/23 164/92 General: No acute distress. A+Ox3. HEENT: Normocephalic. Atraumatic. Conjunctiva and sclera clear. NECK: No carotid bruits. No JVD. Carotid upstrokes are brisk. Heart: RRR. S1 and S2 noted without murmur, rubs, gallops. PMI non displaced. Pacemaker insertion site healed, no signs of infection. Lungs: Clear to auscultation. No wheezes, rhonchi, rales. Abdomen: Normal bowel sounds. Soft. Nontender. No masses or organomegaly. No abdominal bruits. Extremities: trace ankle edema. No clubbing or cyanosis. Pulses: radial=2/4, posterior tibial=2/4, dorsalis pedis = 2/4. NEURO: No focal deficits. PSYCH: Normal. Lab data/imaging study review: Device interrogation reviewed from Oct 2024: Appropriate function and battery longevity of 12.4 years. 58% atrial paced, less than 1% RV paced,0% afib burden Echo report reviewed from February 2024 at [facility]: Echocardiogram report reviewed dated January 2024: Interpretation Summary The examination is adequate to evaluate the referral indication. The LV wall thickness is mildly increased (concentric). The left ventricular wall motion is normal. The qualitative LV ejection fraction is 60-64% (normal). The left atrium is mildly enlarged (35-41 ml/m^2). The left ventricular diastolic function is mildly abnormal (grade I). Mild mitral regurgitation is present. Mild aortic valve sclerosis is present. Aortic stenosis is absent. There is no prior study available for comparison. Echocardiogram [facility], December 30, 2021 per report Left ventricle is mildly dilated overall systolic function is normal EF 68% There is aortic sclerosis but no stenosis with mild aortic insufficiency the left atrium is dilated Lipids done at outside facility. Will request Latest Reference Range & Units 08/05/24 12:22 SODIUM 135 - 146 mmol/L 140 POTASSIUM 3.5 - 5.1 mmol/L 4.1 CHLORIDE 98 - 107 mmol/L 105 CO2 22 - 32 mmol/L 26 BUN 6 - 20 mg/dL 18 CREATININE 0.5 - 1.0 mg/dL 0.9 EGFR >=60 mL/min 65 ANION GAP 7 - 15 mmol/L 9 GLUCOSE 70 - 120 mg/dL 98 CALCIUM 8.4 - 10.2 mg/dL 9.8 Assessment & Plan Hypertension Blood pressure is elevated today with recent readings of 171/71 mmHg at home and 160/90 mmHg in theoffice. She has been inconsistent with medication adherence and consumes some dietary salt. - Monitor blood pressure at home at least two hours post-morning medications, sitting quietly for 5-10 minutes before measurement. - Record and report blood pressure readings in a few weeks. - Advise on reducing dietary salt and increasing physical activity. - Consider medication adjustment if hypertension persists after monitoring. Peripheral edema Reports swelling in the right leg and foot, potentially exacerbated by varicose veins and possibly amlodipine. - Advise wearing compression stockings, especially in the morning. - Encourage increased physical activity to reduce swelling. Pacemaker management Pacemaker is functioning well with the last remote transmission on November 11, 2024. No atrial fibrillation detected. PAF -no recent recurrence -continue current medications including metoprolol and Eliquis Dyslipidemia- continue statin Recording duration: 16 minutes The patient is to continue all current medications as listed above. No changes were made at today'svisit. Patient Instructions Monitor your blood pressure at home over the next several weeks, at least 2 hours after your morning medications. Sit quietly for 5-10 minutes before taking your blood pressure. Record the readings and call our office to give report/readings in a few weeks. Patient is being evaluated in the cardiology office for ongoing care/risk management for PAF; pacemaker; HTN; dyslipidemia. I spent a total of 25 minutes on the date of service in preparation, delivery, and documentation ofthe care provided to Simi Guadarrama excluding any time spent in the performance of separately billed services. The patient agrees to the above plan and will call with additional questions or concerns. ER with all emergencies advised. Follow-up: Return in about 6 months (around 06/30/2025). | Check-out note: Print instructions Yuliana Dye PA-C Department of Cardiology Text in this note was generated using an ambient documentation service. I discussed the use of a device to record and summarize our discussion today. All persons present during the encounter consented to its use. This chart was completed in part utilizing [employer] Speech Voice Recognition Software. Grammatical errors, random word insertions, prounoun errors, and incomplete sentences are an occasional consequence of this system due to software limitations, ambient noise, and hardware issues. Any formal questions or concerns about the content, text, or information contained within the body of this dictation should be directly addressed to the provider for clarification. documented in this encounter Nursing Notes * Laquita Dennis CMA - 12/28/2024 9:21 AM EDT Examination Room: 6 Name: Simi Guadarrama Date of : (1940). Reason for Visit: f/u Interim Hospitalization(s): denies Problems/Concerns: Reports some BLE edema, states R leg swells worse than L. Also reports dizzinesstoday. Would like to discuss if pacer check is needed. Chest Pain/SOB: denies [facility] Discussed: Yes [facility] is a way you can talk to your provider online through e-mail. Would you like to sign up? I can activate it for you? ALREADY ACTIVE Patient was instructed to not get up on the exam table until directed and assisted by their provider; patient is to remain seated in the chair/ wheelchair/ exam table for fall prevention and safety reasons. Patient is aware to have assistance to step down off exam table with personnel. Patient voiced full comprehension of instructions. documented in this encounter Plan of Treatment Health Maintenance Due Date Last Done Comments Depression Screening 1952 Albumin/Creatinine Ratio 1958 DTap/Tdap Vaccines (1 - Tdap) 1959 Zoster Vaccines (1 of 2) 1990 COVID-19 Vaccine (1 - season) 2024 Influenza Vaccine (FLU shot) (#1) 2024 GFR 08/05/2025 08/05/2024, 12/2023, 12/28/2023, Additional history exists DXA Scan 10/28/2029 10/28/2022, 0 03/2022, 02/05/2017 Pneumococcal Vaccine: 50+ Years Completed [...] as of this encounter Visit Diagnoses Diagnosis HTN, goal below 140/90- Primary Unspecified essential hypertension Dyslipidemia, goal LDL below 100 Other and unspecified hyperlipidemia Paroxysmal atrial fibrillation (HCC) Atrial fibrillation Cardiac pacemaker in situ documented in this encounter Care Teams Metal Fabricating Supervisor Relationship Specialty Start Date End Date Daniel Madrid DO [address] [facility] [address] [place] [address] PCP - General Family Medicine 08/27/20 documented as of this encounter"
--- OUTSIDE RECORDS SUMMARY | 2025-01-21 00:02 | External Medical Summary | Summary of Care ---
Author Name Unknown Organization [facility] Address [address] [place] [facility] [place] [address] Phone [phone] Care Team Providers Care Hostess Name Role Phone CheleDaniel de jesus Primary Care Provider [phone] [phone] Encounter Details Date Type Department Care Team (Late st Contact Info) Description 09/06/2024 Result Scan Unspecified Department Jevon Britton MD [address] [place] [phone] <No scans attached> Allergies No known active allergiesdocumented as of this encounter (statuses as of 09/06/2024) Medications Atorvastatin Calcium 40 MG Oral Tablet [...] as of this encounter (statuses as of 09/06/2024) Active Problems Problem Noted Date Diagnosed Date HTN, goal below 140/90 06/21/2024 Paroxysmal atrial fibrillation 06/21/2024 Cardiac pacemaker in situ 06/21/2024 Dyslipidemia, goal LDL below 100 06/21/2024 Advanced directives, counseling/discussion 08/09 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 Cystocele, lateral 08/27/2020 Rectocele 08/27/2020 Vaginal atrophy 08/27/2020 Feeling of incomplete bladder emptying 0 Constipation 08/27/2020 documented as of this encounter (statuses as of 09/06/2024) Social History Tobacco Use Types Packs/Day Years [...] 12/28/2024 9:30 AM EDT Office Visit Cardiology, [facility] [address] [place] [address] [address] Yuliana Dye PA-C [address] [place] [address] Health Maintenance Due Date Last Done Comments Depression Screening 1952 Albumin/Creatinine Ratio 1958 DTap/Tdap Vaccines (1 - Tdap) 1959 Zoster Vaccines (1 of 2) 1990 COVID-19 Vaccine (1 - season) 2024 Influenza Vaccine (FLU shot) (#1) 2024 GFR 08/05/2025 08/05/2024, 09/0 12/2023, 12/28/2023, Additional history exists DXA Scan 10/28/2029 10/28/2022, 07/0 03/2022, 02/05/2017 Pneumococcal Vaccine: 65+ Years Completed [...] Not on filedocumented as of this encounter Procedures Procedure Name Priority Date/Time Associated Diagnosis Comments CARDIOLOGY SCANNED RESULT 09/06/2024 documented in this encounter Results * CARDIOLOGY SCANNED RESULT (09/06/2024) 09/06/2024 Jevon Britton MD OTHER Final Result documented in this encounter Care Teams Hostess Relationship Specialty Start Date End Date Daniel Madrid DO [address] [facility] [address] [place] [address] PCP - General Family Medicine 08/27/20 documented as of this encounter
--- OUTSIDE RECORDS SUMMARY | 2025-01-21 00:02 | External Medical Summary | Summary of Care ---
Author Name Unknown Organization [facility] Address [address] [place] [address] Phone [phone] Care Team Providers Care Anodizer Name Role Phone CheleDaniel de jesus Primary Care Provider [phone] [phone] Reason for Visit * Reason Comments Outpatient Testing Encounter Details Date Type Department Care Team (Late st Contact Info) Description 01/04/2025 8:40 AM EDT Laboratory Laboratory [address] [place] [address] [facility] [address] [place] [address] Gouty nephropathy; Dyslipidemia, goal LDL below 160; [...] hypertension documented in this encounter Care Teams Anodizer Relationship Specialty Start Date End Date Daniel Madrid DO [address] [id number] PCP - General Family Medicine 08/27/20 documented as of this encounter
--- OUTSIDE RECORDS SUMMARY | 2025-01-21 00:02 | External Medical Summary ---
Author Name Unknown Address Unknown Organization [id number]:[facility] [place] [address] [place] [address] Laboratory Report Ordering Provider Test Date Status POLLY CARUSO 01/04/2025 08:44:43 Final Observation Date Value Abnormality Reference (Units ) Status TSH 01/04/2025 08:44:43 1.87 0.27-4.20 (uIU/mL) Final Performing Location LABORATORY [facility] - [address] [place] [address]
--- OUTSIDE RECORDS SUMMARY | 2025-01-21 00:02 | External Medical Summary | Summary of Care ---
Author Name Unknown Organization [facility] Address [address] [place] [address] Phone [phone] Care Team Providers Care Team Guide Name Role Phone CheleDaniel de jesus Primary Care Provider [phone] [phone] Reason for Visit * Reason Comments Outpatient Testing Encounter Details Date Type Department Care Team (Late st Contact Info) Description 01/04/2025 8:40 AM EDT Laboratory Laboratory [address] [place] [address] [facility] Lab [address] [place] [address] Gouty nephropathy; Dyslipidemia, goal LDL below 160; [...] goal below 140/90 01/04/2025 8:44 AM EDT URINALYSIS, REFLEX TO MICROSCOPIC Lab Routine Gouty nephropathy Dyslipidemia, goal LDL below 160 SAPHO syndrome (HCC) HTN, goal below 140/90 01/04/2025 8:44 AM EDT ALBUMIN / CREATININE RATIO, URINE Lab Routine Gouty nephropathy Dyslipidemia, goal LDL [...] of 2) 1990 COVID-19 Vaccine (1 - 2023- season) 2024 Influenza Vaccine (FLU shot) (#1) 2024 GFR 08/05/2025 08/05/2024, 12/2023, 12/28/2023, Additional history exists DXA Scan 10/28/2029 10/28/2022, 07/0 03/2022, 02/05/2017 Pneumococcal Vaccine: 50+ Years Completed [...] hypertension documented in this encounter Care Teams Team Guide Relationship Specialty Start Date End Date Daniel Madrid DO [address] [place], [place] [address] [address] PCP - General Family Medicine 08/27/20 documented as of this encounter
--- OUTSIDE RECORDS SUMMARY | 2025-01-21 00:02 | External Medical Summary ---
Author Name Unknown Address Unknown Organization [id number]:[facility] [place] [address] [facility] [address] Laboratory Report Ordering Provider Test Date Status POLLY CARUSO 01/04/2025 08:44:43 Final Observation Date Value Abnormality Reference (Units ) Status WBC, Total 01/04/2025 08:44:43 6.51 4.00-10.80 (K/uL) Final RBC 01/04/2025 08:44:43 4.75 3.85-5.15 (M/uL) Final Hemoglobin 01/04/2025 08:44:43 13.7 12.0-15.3 (g/dL) Final HCT 01/04/2025 08:44:43 42.9 36.0-45.2 (%) Final MCV 01/04/2025 08:44:43 90.3 81.5-97.5 (fL) Final MCH 01/04/2025 08:44:43 28.8 27.0-34.0 (pg) Final MCHC 01/04/2025 08:44:43 31.9 32.0-36.0 (g/dL) Final RDW 01/04/2025 08:44:43 13.5 11.5-15.5 (%) Final Platelets 01/04/2025 08:44:43 213 140-400 (K/uL) Final MPV 01/04/2025 08:44:43 12.2 6.6-11.1 (fL) Final Nucleated erythrocytes/100 leukocytes [Ratio] in Blood by Automated count 01/04/2025 08:44:43 0 <=0 (/100 WBCs) Final Performing Location [facility] [place] [address] [place] [address]
--- OUTSIDE RECORDS SUMMARY | 2025-01-21 00:02 | External Medical Summary | Summary of Care ---
Author Name Unknown Organization [facility] Address [address] [facility] [place] [address] Phone [phone] Care Team Providers Care Green Building Energy Engineer Name Role Phone CheleDaniel de jesus Primary Care Provider [phone] [phone] Encounter Details Date Type Department Care Team (Late st Contact Info) Description 11/22/2024 Result Scan Unspecified Department Jevon Britton MD [address] [place] [phone] <No scans attached> Allergies No known active allergiesdocumented as of this encounter (statuses as of 11/23/2024) Medications Atorvastatin Calcium 40 MG Oral Tablet [...] as of this encounter (statuses as of 11/23/2024) Active Problems Problem Noted Date Diagnosed Date HTN, goal below 140/90 06/21/2024 Paroxysmal atrial fibrillation 06/21/2024 Cardiac pacemaker in situ 06/21/2024 Dyslipidemia, goal LDL below 100 06/21/2024 Advanced directives, counseling/discussion 08/09 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 Cystocele, lateral 08/27/2020 Rectocele 08/27/2020 Vaginal atrophy 08/27/2020 Feeling of incomplete bladder emptying 0 Constipation 08/27/2020 documented as of this encounter (statuses as of 11/23/2024) Social History Tobacco Use Types Packs/Day Years [...] 12/28/2024 9:30 AM EDT Office Visit Cardiology, [facility] [address] [place] [address] Yuliana Dye PA-C [address] [place] [address] Health Maintenance Due Date Last Done Comments [...] Date/Time Associated Diagnosis Comments CARDIOLOGY SCANNED RESULT 11/22/2024 documented in this encounter Results * CARDIOLOGY SCANNED RESULT (11/22/2024) 11/22/2024 Jevon Britton MD OTHER Final Result documented in this encounter Care Teams Green Building Energy Engineer Relationship Specialty Start Date End Date Daniel Madrid DO [address] [facility] [address] [place] [address] PCP - General Family Medicine 08/27/20 documented as of this encounter
--- OUTSIDE RECORDS SUMMARY | 2025-01-21 00:02 | External Medical Summary ---
Author Name Unknown Address Unknown Organization [id number][place] [place] [address] [facility] [place] [address] Laboratory Report Ordering Provider Test Date Status POLLY CARUSO 01/04/2025 08:44:43 Final Observation Date Value Abnormality Reference (Units ) Status SYNC LEUKOCYTES IN BLOOD BY AUTOMATED COUNT 01/04/2025 08:44:43 6.51 4.00-10.80 (K/uL) Final Segs 01/04/2025 08:44:43 65.1 40.0-75.0 (%) Final Lymphs % 01/04/2025 08:44:43 20.6 18.0-42.0 (%) Final Monos 01/04/2025 08:44:43 10.1 1.0-11.0 (%) Final Eosinophils 01/04/2025 08:44:43 2.8 0.0-6.0 (%) Final Basos 01/04/2025 08:44:43 1.1 0.0-2.0 (%) Final Immature Granulocyte, Percent 01/04/2025 08:44:43 0.3 0.0-2.0 (%) Final Absolute Segs 01/04/2025 08:44:43 4.24 1.80-7.70 (K/uL) Final Lymphs, absolute 01/04/2025 08:44:43 1.34 1.00-4.80 (K/ul) Final Monos, Abs 01/04/2025 08:44:43 0.66 0.00-1.10 (K/uL) Final Eos, Abs 01/04/2025 08:44:43 0.18 0.00-0.70 (K/uL) Final Basos, Abs 01/04/2025 08:44:43 0.07 0.00-0.20 (K/uL) Final Immature Granulocytes, Number 01/04/2025 08:44:43 0.02 0.00-0.20 (K/uL) Final Performing Location [facility] [place] [address] [facility] [address]
--- OUTSIDE RECORDS SUMMARY | 2025-01-21 00:03 | External Medical Summary ---
Author Name Unknown Address Unknown Organization K01:[facility] [place] [facility] [address] [facility] [address] Laboratory Report Ordering Provider Test Date Status GINGER ATKINSON 08/05/2024 12:22:13 Final Observation Date Value Abnormality Reference (Units ) Status BUN 08/05/2024 12:22:13 18 6-20 (mg/dL) Final Creatinine 08/05/2024 12:22:13 0.9 0.5-1.0 (mg/dL) Final Glomerular filtration rate/1.73 sq M.predicted [Volume Rate/Area] in Serum, Plasma or Blood by Creatinine-based formula (CKD-EPI) 08/05/2024 12:22:13 65 >=60 (mL/min) Final eGFR is calculated based on the CKD-EPI 2020 equation. Sodium 08/05/2024 12:22:13 140 135-146 (m mol/L) Final Potassium 08/05/2024 12:22:13 4.1 3.5-5.1 (m mol/L) Final Cl 08/05/2024 12:22:13 105 98-107 (mm ol/L) Final CO2 08/05/2024 12:22:13 26 22-32 (mmo l/L) Final Anion gap 08/05/2024 12:22:13 9 7-15 (mmol /L) Final Glucose 08/05/2024 12:22:13 98 70-120 (mg /dL) Final Calcium 08/05/2024 12:22:13 9.8 8.4-10.2 ( mg/dL) Final Performing Location LAB[facility] [place] [address] [facility] [address]
--- OUTSIDE RECORDS SUMMARY | 2025-01-21 00:03 | External Medical Summary | Summary of Care ---
Author Name Unknown Organization [facility] Address [address] [place] [address] Phone [phone] Care Team Providers Care Manager Private Name Role Phone CheleDaniel de jesus Primary Care Provider [phone] Reason for Visit * Reason Comments Outpatient Testing Encounter Details Date Type Department Care Team (Late st Contact Info) Description 08/05/2024 12:20 PM EDT Laboratory Laboratory [address] [place] [id number] [facility] [address] [place] [address] Paroxysmal atrial fibrillation (HCC); Tachy-shahram syndrome (HCC); Cardiac pacemaker in situ; HTN, goal below 140/90; Hyperlipemia, mixed; Vertigo Allergies No known active allergiesdocumented as of this encounter (statuses as of 08/05/2024) Medications Medication Sig Dispensed Refills Start Date [...] as of this encounter (statuses as of 08/05/2024) Active Problems Problem Noted Date Diagnosed Date HTN, goal below 140/90 06/21/2024 Paroxysmal atrial fibrillation 06/21/2024 Cardiac pacemaker in situ 06/21/2024 Dyslipidemia, goal LDL below 100 06/21/2024 Advanced directives, counseling/discussion 08/09 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 Cystocele, lateral 08/27/2020 Rectocele 08/27/2020 Vaginal atrophy 08/27/2020 Feeling of incomplete bladder emptying 0 Constipation 08/27/2020 documented as of this encounter (statuses as of 08/05/2024) Social History Tobacco Use Types Packs/Day Years [...] AM EDT Office Visit Cardiology, [facility] [address] [place] [address] Yuliana Dye PA-C [address] [place] [address] Pending Results Name Type Priority Associated Diagnoses Date /Time BASIC METABOLIC PANEL Lab Routine Paroxysmal atrial fibrillation (HCC) 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 HTN, goal below 140/90 Hyperlipemia, mixed Vertigo 08/05/2024 12:22 PM EDT Health Maintenance Due Date Last Done Comments Depression Screening 1952 Albumin/Creatinine Ratio 1958 DTap/Tdap Vaccines (1 - Tdap) 1959 Zoster Vaccines (1 of 2) 1990 COVID-19 Vaccine (1 - season) 2024 Influenza Vaccine (FLU shot) (#1) 2024 GFR 06/21/2025 06/21/2024, 12/17, 12/25/2023, Additional history exists DXA Scan 10/28/2029 10/28/2022, [...] as of this encounter Visit Diagnoses Diagnosis Paroxysmal atrial fibrillation (HCC) Atrial fibrillation Tachy-shahram syndrome (HCC) Sinoatrial node dysfunction Cardiac pacemaker in situ HTN, goal below 140/90 Unspecified essential hypertension Hyperlipemia, mixed Mixed hyperlipidemia Vertigo Dizziness and giddiness documented in this encounter Care Teams Manager Private Relationship Specialty Start Date End Date Daniel Madrid DO [address] [place] [address] PCP - General Family Medicine 08/27/20 documented as of this encounter
--- OUTSIDE RECORDS SUMMARY | 2025-01-21 00:03 | External Medical Summary | Summary of Care ---
Author Name Unknown Organization [facility] Address [address] [place] [address] Phone [phone] Care Team Providers Care Communications Professor Name Role Phone Daniel Madrdi Primary Care Provider [phone] Reason for Visit * Reason Onset Date Comments Medication Problem 08/04/2024 Medication Refill 08/04/2024 Encounter Details Date Type Department Care Team (Late st Contact Info) Description 08/04/2024 Refill Cardiology, [facility] [address] [place] [address] China Miles PA-C [address] [place] [address] Paroxysmal atrial fibrillation (HCC); Tachy-shahram syndrome (HCC); Cardiac pacemaker in situ; HTN, goal below 140/90; Hyperlipemia, mixed; Vertigo Allergies No known active allergiesdocumented as of this encounter (statuses as of 08/10/2024) Medications Medication Sig Dispensed Refills Start Date End Date Status Atorvastatin Calcium 40 MG Oral Tablet 1 tablet daily Active Estrogens, Conjugated 0.625 MG/GM Vaginal Cream (Premarin) Administer 0.5 g into the vagina once a day Thursday and only. Use 0.5 g with applicator at bedtime 30 g 6 12/17/2020 Active LORazepam 0.5 MG Oral Tablet (Ativan) 10/22/2021 Active Potassium Citrate ER 10 MEQ (1080 MG) Oral Tablet Extended Release (Urocit-K) Take 1 Tablet by mouth every other day. 11/02/2021 Active Calcium+D3 600-20 MG-MCG Oral Tablet (Calcium Carb-Cholecalcifer ol) Take by mouth 1 Tablet daily . Active Losartan Potassium 100 MG Oral Tablet (Cozaar) Take 1 Tablet by mouth in the morning. 02/17/2024 Active Metoprolol Succinate ER 50 MG Oral Tablet Extended Release 24 Hour (Toprol XL) Take 2 Tablets by mouth daily AND 1 Tablet at bedtime. 270 Tablet 3 04/11/2024 Active Apixaban 5 MG Oral Tablet (Eliquis)Indicatio ns:Paroxysmal atrial fibrillation (HCC) Take 1 Tablet by mouth in the morning and 1 Tablet before bedtime. 180 Tablet 3 06/21/2024 Active amLODIPine Besylate 5 MG Oral Tablet (Norvasc)Indicatio ns:HTN, goal below 140/90 Take 1 Tablet by mouth in the morning. 90 Tablet 3 06/21/2024 Active hydroCHLOROthiazid e 12.5 MG Oral CapsuleIndications :Paroxysmal atrial fibrillation (HCC),Tachy-shahram syndrome (HCC),Cardiac pacemaker in situ,HTN, goal below 140/90,Hyperlipemi a, mixed,Vertigo Take 1 Capsule by mouth in the morning. 90 Capsule 3 08/04/2024 Active hydroCHLOROthiazid e 12.5 MG Oral CapsuleIndications :Paroxysmal atrial fibrillation (HCC),Tachy-shahram syndrome (HCC),Cardiac pacemaker in situ,HTN, goal below 140/90,Hyperlipemi a, mixed,Vertigo Take 1 Capsule by mouth in the morning. 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 Authorizing Provider: CHINA MILES * Telephone Encounter - China Miles PA-C - 08/04/2024 4:28 PM EDT I have no documentation where hctz was changed by our office or at the hospital. I would recommend she resume lower dose HCTZ 12.5 mg - 1 tab daily Script sent * Telephone Encounter - Bolivar Bah LPN - 08/04/2024 4:23 PM EDTPending Prescriptions: Disp Refills hydroCHLOROthiazide 12.5 MG Oral Capsule 90 Cap*3 Sig: Take 1 Capsule by mouth in the morning. * Telephone Encounter - Bolivar Bah LPN - 08/04/2024 4:20 PM EDT Patient stated she has not seen PCP in over a year and changes were made by [facility]. No documentation stating to increase HCTZ. Patient is out of medication. Informed patient to talk to pharmacy about paying out of pocket for 2 weeks of medication. BMP ordered. * Telephone Encounter - China Miles PA-C - 08/04/2024 4:09 PM EDT Pending Prescriptions: Disp Refills hydroCHLOROthiazide 12.5 MG Oral Capsule 90 Cap*3 Sig: Take 1 Capsule by mouth in the morning. * Telephone Encounter - China Miles PA-C - 08/04/2024 4:07 PM EDT [place] records reviewed. The most recent admission was in February 2024 and HCTZ was NOT changed - she was to be taking 12.5 mg -1 tablet daily Did her PCP change the dose? Typically HCTZ is NOT taken twice per day. How long has she been taking the twice per day dose? Would recommend BMP If she does not recall who changed this, or if we cannot find documentation, I would recommend we cut it back to 1 time per day * Telephone Encounter - Merary Rand CPhT - 08/04/2024 9:10 AM EDT Pt calling because she was told by [facility] to increase her medication to 1 in the morning and 1 at night. Pt is now out of medication. Please refill if appropriate. Patient is up to date for office visits. Pending Prescriptions: Disp Refills hydroCHLOROthiazide 12.5 MG Oral Capsule 90 Cap*3 Sig: Take 1 Capsule by mouth in the morning. Last Visit: 06/21/2024 (in office), Visit date not found (telemedicine) Next Visit: 12/28/2024 If no future appointments scheduled, and last appointment is greater than a year ago, please schedule patient for a follow-up appointment Last date the medication was ordered: 12/21/23 Pharmacy: [address] Is this request for a controlled substance?No it is not controlled. Urine Drug Screen:No results found for this or any previous visit. Patient Phone Numbers Labs: Lab Results Component Value Date/Time CREAT 1.1 (H) 06/21/2024 09:57 AM CREAT 1.03 03/12/2023 12:00 AM POTASSIUM 4.0 06/21/2024 09:57 AM POTASSIUM 3.8 03/12/2023 12:00 AM TSH 1.23 06/21/2024 09:57 AM TSH 3.220 12/29/2021 12:00 AM LDL 72 06/21/2024 09:57 AM LDL 90 04/15/2022 12:00 AM LDLCALC 75.80 04/15/2022 12:00 AM LDLCALC 88 08/11/2018 06:51 AM ALT 21 06/21/2024 09:57 AM HGBA1C 5.6 04/15/2022 12:00 AM HGBA1C 6.0 08/11/2018 06:51 AM Merary Johnson CPhT [employer] [facility] 08/04/2024,9:13 AM documented in this encounter Plan of Treatment Upcoming Encounters Date Type Department Care Team (Late st Contact Info) Description 12/28/2024 9:30 AM EDT Office Visit Cardiology, [facility] [address] [place] [address] China Miles PA-C [address] [place] [address] Health Maintenance Due Date Last Done Comments [...] Not on filedocumented as of this encounter Results * BASIC METABOLIC PANEL (08/05/2024 12:22 PM EDT) BUN 18 6 - 20 mg/dL 08/06/2024 4:44 AM EDT [facility] CREATININE 0.9 0.5 - 1.0 mg/dL 08/06/2024 4:44 AM EDT [facility] EGFR 65 >=60 mL/min 08/06/2024 4:44 AM EDT [facility] Comment:eGFR is calculated b ased on the CKD-EPI 2020 equation. SODIUM 140 135 - 146 mmol/L 08/06/2024 4:44 AM EDT [facility] POTASSIUM 4.1 3.5 - 5.1 mmol/L 08/06/2024 4:44 AM EDT [facility] CHLORIDE 105 98 - 107 mmol/L 08/06/2024 4:44 AM EDT [facility] CO2 26 22 - 32 mmol/L 08/06/2024 4:44 AM EDT [facility] ANION GAP 9 7 - 15 mmol/L 08/06/2024 4:44 AM EDT [facility] GLUCOSE 98 70 - 120 mg/dL 08/06/2024 4:44 AM EDT [facility] CALCIUM 9.8 8.4 - 10.2 mg/dL 08/06/2024 4:44 AM EDT [facility] Blood Venous blood specimen / Unknown Venipuncture / Unknown 08/05/2024 12:22 PM EDT 08/05/2024 12:22 PM EDT China Miles PA-C LAB BLOOD [facility] Organization Address City/State/ZIP Co de Phone Number [facility] [address] [facility] [address] documented in this encounter Visit Diagnoses Diagnosis Paroxysmal atrial fibrillation (HCC) Atrial fibrillation Tachy-shahram syndrome (HCC) Sinoatrial node dysfunction Cardiac pacemaker in situ HTN, goal below 140/90 Unspecified essential hypertension Hyperlipemia, mixed Mixed hyperlipidemia Vertigo Dizziness and giddiness documented in this encounter Care Teams Communications Professor Relationship Specialty Start Date End Date Daniel Madrid DO [address] [address] PCP - General Family Medicine 08/27/20 documented as of this encounter
[2025-01-21] MEDS ORDERED: Heparin IV Adult Wt-Based Low-Dose *NO* INITIAL Bolus Protocol IV STA (00:08)
[2025-01-21] MEDS: HEPARIN 25000 UNIT/500 ML D5W 25,000 UNITS/500 ML BAG IV SCH (01:31)
[2025-01-21 08:55] LABS: Basophils # (auto) 0.05 K/uL (0.00-0.20); Basophils % (auto) 0.6 %; Eosinophils # (auto) 0.12 K/uL (0.00-0.50); Eosinophils % (auto) 1.5 %; Hematocrit (blood only) 43.2 % (37.0-47.0); Hemoglobin 14.2 g/dl (12.0-16.0); Immature Granulocytes # (auto) 0.03 K/uL (0.01-0.20); Immature Granulocytes % (auto) 0.4 %; Lymphocytes # (auto) 1.69 K/uL (1.20-3.40); Lymphocytes % (auto) 20.5 %; Mean Corpuscular Hemoglobin 28.7 pg (25.0-34.0); Mean Corpuscular Hgb Conc 32.9 g/dL (32.0-36.0); Mean Corpuscular Volume 87.4 fL (80.0-100.0); Mean Platelet Volume 11.9 fL (9.4-12.4); Monocytes # (auto) 0.44 K/uL (0.11-0.59); Monocytes % (auto) 5.3 %; Neutrophils # (auto) 5.91 K/uL (1.40-6.50); Neutrophils % (auto) 71.7 %; Platelet Count 229 K/uL (130-400); RDW Coefficient of Variation 13.7 % (11.5-14.5); RDW Standard Deviation 43.8 fL (36.4-46.3); Red Blood Count 4.94 M/uL (4.20-5.40); White Blood Count 8.24 K/ul (4.8-10.8)
[2025-01-21] MEDS ORDERED: NON-FORMULARY MEDICATION (B-Complex With Vitamin C Tablet) PO SCH (09:00)
[2025-01-21 09:06] LABS: Albumin Globulin Ratio 1.2 (0.9-2); Albumin Level 3.8 gm/dl (3.4-5.0); BUN Creatinine Ratio 21.8 (10-20); Bilirubin,Total 1.1 mg/dl (0.2-1.0); Calcium 9.6 mg/dl (8.6-10.3); Creatinine Clr Calc Pharmacy 44.7 ml/min; Globulin 3.2 gm/dl (2.5-4.0); Phosphorus 3.1 mg/dl (2.5-4.9); Potassium 3.8 mmol/L (3.5-5.1)
[2025-01-21] MEDS: hydroCHLOROthiazide 25 MG TAB PO SCH (09:14)
[2025-01-21] MEDS: ATORVASTATIN 40 MG TAB PO SCH (09:14)
[2025-01-21] MEDS: LOSARTAN POTASSIUM 50 MG TAB PO SCH (09:14)
[2025-01-21] MEDS: amLODIPine BESYLATE 5 MG TAB PO SCH (09:15)
[2025-01-21] MEDS: METOPROLOL SUCC 50MG EXT REL TAB PO SCH ×2 (09:15→20:45)
[2025-01-21 09:40] LABS: ANTI-Xa, UFH(UnfractionatedHep 1.07 IU/ml (0.3-0.7)
[2025-01-21 09:48] LABS: Troponin I High Sensitivity 11.3 pg/ml (0-14)
--- NOTE | 2025-01-21 11:13 | Cardiology Consultation ---
Date of Consultation January 21, 2025 Assessment & Plan (1) Atrial fibrillation with rapid ventricular response: (2) Cardiac pacemaker in situ: (3) Hypertension: Plan 84 year old female with past medical history of paroxysmal atrial fibrillation, tachy-shahram s/p dual chamber pacemaker, dyslipidemia, labile hypertension, who presents to ED with chest pain. Found to be in afib with RVR. Admits to missing one dose of metoprolol COLLECTIONS ANALYST. - chest pain now resolved - heart rates still mildly elevated on telemetry - will give digoxin 250 mcg x1 - continue metoprolol succinate 100 mg in AM, 50 mg in PM, can further titrate if needed for heart rate control - currently on heparin gtt, transition back to Eliquis once appropriate - continue to monitor on telemetry - continue amlodipine, HCTZ, losartan Case discussed with attending physician, further recommendations per Dr. Werner. I spent a total of 40 minutes on the date of service in preparation, delivery, and documentation of the care provided to this patient excluding any time spent in the performance of separately billed services. This visit was a split-shared visit with the substantial portion of the decision making performed by the supervising lab support technician/billing provider. Supervising Physician Co-Signing Physician Notes I spent a total of minutes on the date of service in preparation, delivery, and documentation of the care provided to this patient, excluding any time spent in the performance of separately billed services. I have personally performed a history and physical examination on the patient. I have reviewed the advance practitioner's documentation, and I agree with, and take responsibility for the plan of care. 84-year-old female with a past medical history of paroxysmal atrial fibrillation, tachybradycardia syndrome status post dual-chamber pacemaker, HTN, HLD presented yesterday to [facility] with symptoms of chest pain. Patient states that she forgot to take her dose of metoprolol in the morning and in the evening as she was busy with chores around the house. He started to have a chest tightness and heaviness that did not resolve. She has had the symptoms in the past but they usually resolve on their own. The discomfort was nonexertional nonradiating. By the time she got to the emergency room her symptoms had completely resolved and that she has not had any recurrence of chest pain. However she was noted to be in atrial fibrillation with rapid ventricular response. ECG showed no acute ischemic changes and troponins have been negative x 3. Patient currently resting comfortably in bed. Denies dyspnea, orthopnea or syncope. On clinical exam she is euvolemic. Will give one-time dose of digoxin to 50 mcg x 1 dose and if no improvement in her heart rate will consider amiodarone infusion tomorrow. Will check echocardiogram. History of Present Illness Reason for Consultation: Afib with RVR [facility] Attending Physician: Yael Alonso MD History of Present Illness 84 year old female with past medical history of paroxysmal atrial fibrillation, tachy-shahram s/p dual chamber pacemaker, dyslipidemia, labile hypertension, who presents to ED with chest pain. States she forgot to take her metoprolol yesterday morning. Around 10AM she had sudden onset of chest pain and heart racing. Was given nitro by EMS with some improvement of symptoms. Found to be in afib with RVR in ED. Was given metoprolol IVP and COLLECTIONS ANALYST metoprolol morning dose. Heart rate continued to be elevated, so was admitted for further management. On exam today, she states she feels better. Denies chest pain, palpitations, shortness of breath, edema. Other than yesterday, has been compliant with all medications. Denies recent illness. Denies abnormal bleeding. Follows with outpatient cardiology clinic, last seen in office 12/28/24 by Yuliana Dye PA-C. Allergies Allergy/AdvReac Type Severity Reaction Status Date / Time No Known Allergies Allergy Verified 01/20/25 18:15 Home Medications Medication Instructions Recorded Confirmed Type amlodipine 5 mg tablet 5 mg PO DAILY 03/12/24 01/20/25 History apixaban 5 mg tablet (Eliquis) 5 mg PO BID 03/12/24 01/20/25 History hydrochlorothiazide 12.5 mg capsule 12.5 mg PO DAILY 03/12/24 01/20/25 History losartan 100 mg tablet 100 mg PO DAILY 03/12/24 01/20/25 History potassium citrate 10 mEq (1,080 10 meq PO DAILY 03/12/24 01/20/25 History mg) tablet,extended release metoprolol succinate 100 mg 100 mg PO QAM #30 tabs 03/14/24 01/20/25 Rx tablet,extended release 24 hr metoprolol succinate 50 mg 50 mg PO HS #30 tabs 03/14/24 01/20/25 Rx tablet,extended release 24 hr B-complex with vitamin C 1 tab PO DAILY 01/20/25 01/20/25 History atorvastatin 40 mg tablet 40 mg PO DAILY 01/20/25 01/20/25 History Patient History Surgical History H/O: hysterectomy History of dilatation and curettage Hx of appendectomy Family History Mother Hypertension Father Bladder cancer Stomach cancer Son Kidney stones Social History Smoking Status: Former smoker Tobacco Type: Cigarettes Second Hand Exposure: Yes; Do You Dip or Chew Tobacco: No; Tobacco Cessation Education Requested by Patient: No Hx Alcohol Use: No Hx Substance Use: No Preferred Language: Brazilian Communication Ability: Effective Payroll Director Required: No Beliefs That Will Affect Care: None Current Living Situation: Alone Current Living Situation Comment: pt currently resides at home Other Information That Helps Us Care for You: No Feels Safe at Home: Yes Safety Concerns: Feels Safe At This Time Assistive Devices: None Assistive Devices Comment: pt uses cane at home to transport from house to garage, "quiet a distance" Review of Systems Review of Systems: CONSTITUTIONAL: No change in weight, No weakness, No fatigue and No fevers, No sweats or chills. PULMONARY: No cough, sputum, or hemoptysis, No wheezing, No shortness of breath and No recent change in breathing. CARDIOVASCULAR: No chest pain, No dyspnea on exertion, No edema, No palpitations and No syncope. GASTROINTESTINAL: No abdominal pain, No change in bowel habits, No significant heartburn, No nausea, No vomiting, No diarrhea, No constipation, No blood in stools or black tarry stools. No dysphagia. HEMATOLOGIC: No abnormal bleeding and No bruising. NEUROLOGICAL: Normal balance, No headaches and No weakness. Physical Exam Physical Exam: General: No acute distress. A+Ox3. HEENT: Normocephalic. Atraumatic. PERRL. EOMI. Conjunctiva and sclera clear. NECK: No carotid bruits. No JVD. Carotid upstrokes are brisk. Heart: Irregularly irregular and tachycardic. S1 and S2 noted. No murmur. No rubs or gallops. PMI non displaced. Lungs: Clear to auscultation. No wheezes. No rhonchi. No rales. Abdomen: Normal bowel sounds. Soft. Nontender. No masses or organomegaly. No abdominal bruits. Extremities: No edema. No clubbing or cyanosis. Pulses: radial=2/4, posterior tibial=2/4, dorsalis pedis = 2/4. NEURO: No focal deficits. PSYCH: Appropriate affect and insight. Results & Data Vital Signs (Past 12 Hours) Vital Signs Temp Pulse Pulse Pulse Resp BP Pulse Ox 01/21/25 08:00 36.8 C 123 H 18 104/73 92 01/21/25 07:09 112 H 01/21/25 05:36 106 H 16 98/71 L 96 01/21/25 04:00 109 H 17 108/60 96 01/21/25 02:00 102 H 18 115/65 95 01/21/25 00:27 118 H 14 117/84 94 01/21/25 00:00 110 H 19 117/84 98 O2 Del Method 01/21/25 08:00 Room Air 01/21/25 07:09 01/21/25 05:36 Room Air 01/21/25 04:00 Room Air 01/21/25 02:00 Room Air 01/21/25 00:27 Room Air 01/21/25 00:00 Room Air Laboratory Results Cardiac Enzymes 01/20/25 01/20/25 01/20/25 Range/Units 14:37 17:10 Unknown AST 18 TNP (13-39) U/L Troponin I High Sens 8.5 5.4 (0-14) pg/ml 01/21/25 Range/Units 08:14 AST 15 (13-39) U/L Troponin I High Sens 11.3 (0-14) pg/ml Coagulation 01/20/25 01/20/25 Range/Units 14:41 Unknown PT 10.9 Cancelled (9.0-12.0) Seconds APTT 30 Cancelled (21-31) Seconds CBC 01/20/25 01/21/25 Range/Units Unknown 08:14 WBC 8.39 8.24 (4.8-10.8) K/ul RBC 4.95 4.94 (4.20-5.40) M/uL Hgb 14.3 14.2 (12.0-16.0) g/dl Hct 43.2 43.2 (37.0-47.0) % Plt Count 148 229 D (130-400) K/uL Neut # (Auto) 6.43 5.91 (1.40-6.50) K/uL Lymph # (Auto) 1.07 L 1.69 (1.20-3.40) K/uL [place] # (Auto) 0.67 H 0.44 (0.11-0.59) K/uL Eos # (Auto) 0.15 0.12 (0.00-0.50) K/uL Baso # (Auto) 0.06 0.05 (0.00-0.20) K/uL Comprehensive Metabolic Panel 01/20/25 01/20/25 01/21/25 Range/Units 14:37 Unknown 08:14 Sodium 139 139 (136-145) mmol/L Potassium 3.9 TNP 3.8 (3.5-5.1) mmol/L Chloride 106 104 (98-107) mmol/L Carbon Dioxide 28 30 (21-32) mmol/L BUN 20 22 (6-23) mg/dl Creatinine 0.96 1.01 (0.6-1.2) mg/dl Glucose 114 H 149 H (70-99(Fasting)) mg/dl Calcium 9.9 9.6 (8.6-10.3) mg/dl AST 18 TNP 15 (13-39) U/L ALT 17 14 (7-52) U/L Alkaline Phosphatase 47 42 (34-104) U/L Total Protein 7.9 7.0 (6.0-8.3) gm/dl Albumin 4.3 3.8 (3.4-5.0) gm/dl Intake and Output 01/20/25 01/21/25 01/21/25 22:59 06:59 14:59 Intake Total 137.333 / 137.333 Output Total 200 / 200 Balance -62.667 / -62.667 Intake: IV 137.333 / 137.333 Heparin 65752 Unit/500 ml D5w 137.333 / 137.333 25,000 units In 500 ml @ 800 UNITS/HR 16 mls/hr IV .Q24H [facility] Rx#:[id number] Output: Urine 200 / 200 Other: Weight 85.275 kg Weight Measurement Method Built in [facility] Diagnostic Findings EKG 01/20/25 afib with RVR, 131 bpm (3) Hypertension Hypertension type: unspecified Qualified Code(s): I10 - Essential (primary) hypertension
[2025-01-21] MEDS ORDERED: METOPROLOL TARTRATE 1 MG/ML VIAL IV PRN (12:12)
--- NOTE | 2025-01-21 12:15 | Hospitalist Progress Note ---
Date of Service January 21, 2025 Assessment & Plan (1) Atrial fibrillation with rapid ventricular response: Plan 84year-old female with past medical history significant for labile hypertension, hyperlipidemia, history of atypical chest pain with negative stress testing, history of paroxysmal atrial fibrillation, tachybradycardia syndrome s/p dual-chamber pacemaker on September 23, 2022, history of acute vertigo, Menieres who presented with concern for chest pain w/ activity, not relieved w/ rest, improved w/ nitro and aspirin. Chest Pain Atrial fibrillation with RVR Hx of tachybradycardia syndrome s/p dual-chamber pacemaker Pt presenting with chest pain, relieved w/ nitro and aspirin. Pt missed her metoprolol in AM of arrival day. EKG noting atrial fibrillation with RVR. Trop x 3 neg. TSH wnl. 2023 ECHO: EF 60-65%, LV systolic fxn normal. LV wall motion normal. c/w tele, c/w home metoprolol, c/w anticoagulation Add prn iv metoprolol Cardio following, await recs. Hypertension Pt on metoprolol 100mg in AM and 50mg in PM, amlodipine 5mg, HCTZ 12.5mg and losartan 100mg daily BP trending lower ? 2/2 irregular and higher HR Holding AM HCTZ and losartan- monitor BP and resume as soon as able Continue other home meds as ordered Diet: HH DVT prophylaxis: On heparin, holding home Eliquis in case any procedure needed. CODE STATUS: wants CPR and defib but DNI Dispo: admit to PCU/tele Admission and Anticipated Discharge Date Admission Date: January 20, 2025 Subjective Patient was seen and examined at bedside. Patient was lying in bed, on room air, NAD, resting comfortably. Patient denies any chest pain, denies palpitation, heart rate in 110s to 120s, irregular. Patient reports eating okay, moving bowels okay. Patient denies any shortness of breath and reports feeling better. Physical Exam Physical Exam: General: Alert, oriented. No acute distress Skin: No noted rashes or bruises Psych: Appropriate mood and affect HEENT: NC/AT Chest: Nontender to palpation. CV: irregular Resp: Breath sounds clear bilaterally, no increased effort of breathing Abdomen: Soft, nontender Extremities: Trace edema in lower extremities bilaterally. Results & Data Results & Data Vital Signs (Past 12 Hours) Vital Signs Temp Pulse Pulse Pulse Resp BP Pulse Ox 01/21/25 08:00 36.8 C 123 H 18 104/73 92 01/21/25 07:09 112 H 01/21/25 05:36 106 H 16 98/71 L 96 01/21/25 04:00 109 H 17 108/60 96 01/21/25 02:00 102 H 18 115/65 95 01/21/25 00:27 118 H 14 117/84 94 O2 Del Method 01/21/25 08:00 Room Air 01/21/25 07:09 01/21/25 05:36 Room Air 01/21/25 04:00 Room Air 01/21/25 02:00 Room Air 01/21/25 00:27 Room Air
[2025-01-21] MEDS: DIGOXIN 250 MCG in SYRINGE 9 ML IV STA (13:06)
[2025-01-21 14:56] LABS: ANTI-Xa, UFH(UnfractionatedHep 0.67 IU/ml (0.3-0.7)
--- NOTE | 2025-01-21 21:57 | Electrocardiogram Report ---
Test Reason : Blood Pressure : */* mmHG Vent. Rate : 119 BPM Atrial Rate : * BPM P-R Int : * ms QRS Dur : 94 ms QT Int : 282 ms P-R-T Axes : * -30 108 degrees QTcB Int : 396 ms Atrial fibrillation with rapid ventricular response Left axis deviation Left ventricular hypertrophy with repolarization abnormality ( R in aVL , Safford product ) Abnormal ECG When compared with ECG of 20-Jan-2025 13:42, No significant change was found Confirmed by Ridge Araujo ([id number]) on 01/21/2025 9:57:19 PM Referred By: REFERRED SELF Confirmed By: Ridge Araujo
[2025-01-22] MEDS: POTASSIUM CHLORIDE CRTAB 20 MEQ TABCR PO STA (03:57)
[2025-01-22] MEDS: METOPROLOL TARTRATE 25 MG TAB PO STA (03:57)
[2025-01-22 04:23] LABS: Hematocrit (blood only) 40.5 % (37.0-47.0); Hemoglobin 13.1 g/dl (12.0-16.0); Mean Corpuscular Hemoglobin 28.4 pg (25.0-34.0); Mean Corpuscular Hgb Conc 32.3 g/dL (32.0-36.0); Mean Corpuscular Volume 87.7 fL (80.0-100.0); Platelet Count 206 K/uL (130-400); RDW Coefficient of Variation 13.6 % (11.5-14.5); RDW Standard Deviation 43.8 fL (36.4-46.3); Red Blood Count 4.62 M/uL (4.20-5.40); White Blood Count 7.91 K/ul (4.8-10.8)
[2025-01-22 04:36] LABS: BUN Creatinine Ratio 26.5 (10-20); Calcium 9.4 mg/dl (8.6-10.3); Creatinine Clr Calc Pharmacy 34.2 ml/min; Magnesium 2.1 mg/dl (1.7-2.4); Phosphorus 3.3 mg/dl (2.5-4.9); Potassium 4.4 mmol/L (3.5-5.1)
[2025-01-22] MEDS: APIXABAN 5 MG TABLET PO SCH (09:39)
--- NOTE | 2025-01-22 14:48 | Cardiology Progress Note ---
Date of Service January 22, 2025 Assessment & Plan (1) Atrial fibrillation with rapid ventricular response: (2) Cardiac pacemaker in situ: (3) Hypertension: Plan 84 year old female with past medical history of paroxysmal atrial fibrillation, tachy-shahram s/p dual chamber pacemaker, dyslipidemia, labile hypertension, who presents to ED with chest pain. Found to be in afib with RVR. Admits to missing one dose of metoprolol [employer]. Echo with normal LVEF, mild valvular disease. - feels well today on exam - heart rates still mildly elevated on telemetry - increase metoprolol succinate to 100 mg in AM, 75 mg in PM - currently on heparin gtt, transition back to Eliquis once appropriate - continue to monitor on telemetry - continue amlodipine, HCTZ, losartan Case discussed with attending physician, further recommendations per Dr. Werner. I spent a total of 25 minutes on the date of service in preparation, delivery, and documentation of the care provided to this patient excluding any time spent in the performance of separately billed services. This visit was a split-shared visit with the substantial portion of the decision making performed by the supervising afternoon nanny/billing provider. Admission and Anticipated Discharge Date Admission Date: January 20, 2025 Supervising Physician Co-Signing Physician Notes I spent a total of 30 minutes on the date of service in preparation, delivery, and documentation of the care provided to this patient, excluding any time spent in the performance of separately billed services. I have personally performed a history and physical examination on the patient. I have reviewed the advance practitioner's documentation, and I agree with, and take responsibility for the plan of care. 84-year-old female with a past medical history of paroxysmal atrial fibrillation, tachybradycardia syndrome status post dual-chamber pacemaker, HTN, HLD presented yesterday to [facility] with symptoms of chest pain. Patient states that she forgot to take her dose of metoprolol in the morning and in the evening as she was busy with chores around the house. He started to have a chest tightness and heaviness that did not resolve. She has had the symptoms in the past but they usually resolve on their own. The discomfort was nonexertional nonradiating. By the time she got to the emergency room her symptoms had completely resolved and that she has not had any recurrence of chest pain. However she was noted to be in atrial fibrillation with rapid ventricular response. ECG showed no acute ischemic changes and troponins have been negative x 3. Patient currently resting comfortably in bed. Denies dyspnea, orthopnea or syncope. On clinical exam she is euvolemic. Patient received a one-time dos e of digoxin 250 mcg IV. Her heart rates are slightly better today. They are ranging the 90s to low 100s. Patient has not had any recurrence of chest pain. Her echocardiogram shows preserved left ventricular ejection fraction. We have increased her evening dose of metoprolol to 75 mg p.o. Patient not interested in amiodarone. Will monitor today and if her heart rates are improving tomorrow we will consider follow-up appointment. If running to issues of low blood pressure readings we can discontinue her amlodipine. Subjective 84-year-old female seen today in cardiology follow-up for A-fib. Feels well from cardiac standpoint. Denies chest pain, palpitations, shortness of breath, edema, lightheadedness. Heart rate better controlled on telemetry, 100-110 bpm this morning. Review of Systems Review of Systems: CONSTITUTIONAL: No change in weight, No weakness, No fatigue and No fevers, No sweats or chills. PULMONARY: No cough, sputum, or hemoptysis, No wheezing, No shortness of breath and No recent change in breathing. CARDIOVASCULAR: No chest pain, No dyspnea on exertion, No edema, No palpitations and No syncope. GASTROINTESTINAL: No abdominal pain, No change in bowel habits, No significant heartburn, No nausea, No vomiting, No diarrhea, No constipation, No blood in stools or black tarry stools. No dysphagia. HEMATOLOGIC: No abnormal bleeding and No bruising. NEUROLOGICAL: Normal balance, No headaches and No weakness. Physical Exam Physical Exam: General: No acute distress. A+Ox3. HEENT: Normocephalic. Atraumatic. PERRL. EOMI. Conjunctiva and sclera clear. NECK: No carotid bruits. No JVD. Carotid upstrokes are brisk. Heart: Irregularly irregular. S1 and S2 noted. No murmur. No rubs or gallops. PMI non displaced. Lungs: Clear to auscultation. No wheezes. No rhonchi. No rales. Abdomen: Normal bowel sounds. Soft. Nontender. No masses or organomegaly. No abdominal bruits. Extremities: No edema. No clubbing or cyanosis. Pulses: radial=2/4, posterior tibial=2/4, dorsalis pedis = 2/4. NEURO: No focal deficits. PSYCH: Appropriate affect and insight. Results & Data Vital Signs (Past 12 Hours) Vital Signs Temp Pulse Pulse Resp BP Pulse Ox O2 Del Method 01/22/25 14:28 120 H 01/22/25 12:25 86 01/22/25 11:20 36.5 C 70 19 98/52 L 91 Room Air 01/22/25 08:10 90 118/69 01/22/25 07:18 36.5 C 108 H 19 96/61 L 99 Room Air 01/22/25 03:41 36.3 C L 98 H 20 114/69 98 Room Air Laboratory Results CBC 01/22/25 Range/Units 03:59 WBC 7.91 (4.8-10.8) K/ul RBC 4.62 (4.20-5.40) M/uL Hgb 13.1 (12.0-16.0) g/dl Hct 40.5 (37.0-47.0) % Plt Count 206 (130-400) K/uL Comprehensive Metabolic Panel 01/22/25 Range/Units 03:59 Sodium 138 (136-145) mmol/L Potassium 4.4 (3.5-5.1) mmol/L Chloride 105 (98-107) mmol/L Carbon Dioxide 30 (21-32) mmol/L BUN 35 H (6-23) mg/dl Creatinine 1.32 H D (0.6-1.2) mg/dl Glucose 109 H (70-99(Fasting)) mg/dl Calcium 9.4 (8.6-10.3) mg/dl Intake and Output 01/21/25 01/22/25 01/22/25 22:59 06:59 14:59 Intake Total 150 / 823.233 535.90 / 823.233 652.617 / 652.617 Balance 150 / 623.233 535.90 / 623.233 652.617 / 652.617 Intake: IV 185.90 / 323.233 52.617 / 52.617 Heparin 94459 Unit/500 ml D5w 185.90 / 323.233 52.617 / 52.617 25,000 units In 500 ml @ 550 UNITS/HR 11 mls/hr IV .Q24H DEREJE Rx#:[id number] Oral 150 / 500 350 / 500 600 / 600 Other: # Unmeasured Voids 1 1 Weight 84.3 kg Weight Measurement Method Built in [facility] Diagnostic Findings Echo 01/22/25, LVEF 55-60%, mild MR (3) Hypertension Hypertension type: unspecified Qualified Code(s): I10 - Essential (primary) hypertension
--- NOTE | 2025-01-22 15:23 | Hospitalist Progress Note ---
Date of Service January 22, 2025 Assessment & Plan (1) Atrial fibrillation with rapid ventricular response: Plan 84year-old female with past medical history significant for labile hypertension, hyperlipidemia, history of atypical chest pain with negative stress testing, history of paroxysmal atrial fibrillation, tachybradycardia syndrome s/p dual-chamber pacemaker on September 23, 2022, history of acute vertigo, Menieres who presented with concern for chest pain w/ activity, not relieved w/ rest, improved w/ nitro and aspirin. Chest Pain Atrial fibrillation with RVR Hx of tachybradycardia syndrome s/p dual-chamber pacemaker Pt presenting with chest pain, relieved w/ nitro and aspirin. Pt missed her metoprolol in AM of arrival day. EKG noting atrial fibrillation with RVR. Trop x 3 neg. TSH wnl. 2023 ECHO: EF 60-65%, LV systolic fxn normal. LV wall motion normal. Echo this admission: EF of 55 to 60%, right ventricular systolic function normal, left ventricular systolic function normal. Left ventricular wall motion normal. c/w tele, c/w home metoprolol, c/w anticoagulation Add prn iv metoprolol Cardio following, Medications being optimized. Acute kidney injury: baseline creatinine around 0.9 to 1.0, Cr jumped to 1.32 today on 01/22, will hold nephrotoxics, labs in AM. Since pulm vascular congestion in CXR, will hold ivf, encourage po intake. Hypertension At home: Pt on metoprolol 100mg in AM and 50mg in PM, amlodipine 5mg, HCTZ 12.5mg and losartan 100mg daily BP trending lower ? 2/2 irregular and higher HR c/w home meds, c/t monitor BP Continue other home meds as ordered Diet: HH DVT prophylaxis: On heparin, holding home Eliquis in case any procedure needed. CODE STATUS: wants CPR and defib but DNI Dispo: admit to PCU/tele. pt /ot. Admission and Anticipated Discharge Date Admission Date: January 20, 2025 Subjective Patient was seen and examined at bedside. Patient was lying in bed, on room air, NAD, resting comfortably. Patient denies any chest pain, denies palpitation, heart rate better controlled in AM Patient reports eating okay, moving bowels okay. Patient denies any shortness of breath and reports feeling better. Physical Exam Physical Exam: General: Alert, oriented. No acute distress Skin: No noted rashes or bruises Psych: Appropriate mood and affect HEENT: NC/AT Chest: Nontender to palpation. CV: irregular Resp: Breath sounds clear bilaterally, no increased effort of breathing Abdomen: Soft, nontender Extremities: Trace edema in lower extremities bilaterally. Results & Data Results & Data Vital Signs (Past 12 Hours) Vital Signs Temp Pulse Pulse Resp BP Pulse Ox O2 Del Method 01/22/25 14:28 120 H 01/22/25 12:25 86 01/22/25 11:20 36.5 C 70 19 98/52 L 91 Room Air 01/22/25 08:10 90 118/69 01/22/25 07:18 36.5 C 108 H 19 96/61 L 99 Room Air 01/22/25 03:41 36.3 C L 98 H 20 114/69 98 Room Air
[2025-01-22] MEDS: METOPROLOL SUCC 25MG EXT REL TAB PO SCH (20:36)
[2025-01-23 06:39] LABS: BUN Creatinine Ratio 28.8 (10-20); Calcium 9.2 mg/dl (8.6-10.3); Creatinine Clr Calc Pharmacy 38.1 ml/min; Magnesium 2.1 mg/dl (1.7-2.4); Potassium 4.2 mmol/L (3.5-5.1)
[2025-01-23 07:12] LABS: ANTI-Xa, UFH(UnfractionatedHep 1.32 IU/ml (0.3-0.7)
--- NOTE | 2025-01-23 12:02 | Cardiology Progress Note ---
Date of Service January 23, 2025 Assessment & Plan (1) Atrial fibrillation with rapid ventricular response: (2) Cardiac pacemaker in situ: (3) Hypertension: Plan 84 year old female with past medical history of paroxysmal atrial fibrillation, tachy-shahram s/p dual chamber pacemaker, dyslipidemia, labile hypertension, who presents to ED with chest pain. Found to be in afib with RVR. Admits to missing one dose of metoprolol [employer]OV[employer]. Echo with normal LVEF, mild valvular disease. - feels well today on exam - heart rates still mildly elevated on telemetry - increase metoprolol succinate to 100 mg in AM, 75 mg in PM - currently on heparin gtt, transition back to Eliquis once appropriate - continue to monitor on telemetry - continue amlodipine, HCTZ, losartan 01/23/2025 No significant symptoms but heart rate still trending higher. Antihypertensives held this morning hydrochlorothiazide and losartan due to relatively lower blood pressures. Plan: Increase metoprolol succinate to 100 mg twice per day. Hold amlodipine with goals to continue hydrochlorothiazide and losartan at reduced dose I spent a total of 35 minutes on the date of service in preparation, delivery, and documentation of the care provided to this patient excluding any time spent in the performance of separately billed services. Admission and Anticipated Discharge Date Admission Date: January 20, 2025 Subjective Patient was seen and personally examined chart, medications, telemetry reviewed. No acute complaints. Heart rates better controlled but still mildly elevated a t times. Antihypertensives held this morning by nursing staff, losartan, hydrochlorothiazide Physical Exam Constitutional: WD/WN, vitals as above no acute distress Eyes: PERRL, conjunctivae normal, anicteric sclerae Neck: trachea midline, no thyromegaly Respiratory: normal respiratory effort, lungs clear to auscultation Cardiovascular: Rate/Rhythm: + tachycardic and + irregularly irregular Heart Sounds: no gallop Vessels: no JVD Gastrointestinal (Abdomen): normal bowel sounds, soft, nontender, no hepatosplenomegaly Results & Data Vital Signs (Past 12 Hours) Vital Signs Temp Pulse Resp BP Pulse Ox O2 Del Method 01/23/25 08:40 111/74 01/23/25 08:00 36.5 C 87 18 94/56 L 97 Room Air 01/23/25 02:40 36.3 C L 76 20 104/65 94 Room Air Laboratory Results Laboratory Results - last 24 hr 04/07/25 04/07/25 05:54 05:55 Heparin Anti-Xa, Unfract 1.32 H* Sodium 139 Potassium 4.2 Chloride 107 Carbon Dioxide 28 Anion Gap 4 BUN 34 H Creatinine 1.18 Est Cr Clr Drug Dosing 38.1 eGFR 45.54 BUN/Creatinine Ratio 28.8 H Glucose 98 Calcium 9.2 Magnesium 2.1 (3) Hypertension Hypertension type: unspecified Qualified Code(s): I10 - Essential (primary) hypertension
[2025-01-23 15:43] VITALS: RESP 18
--- NOTE | 2025-01-23 17:03 | Hospitalist Progress Note ---
Date of Service January 23, 2025 Assessment & Plan (1) Atrial fibrillation with rapid ventricular response: Plan 84year-old female with past medical history significant for labile hypertension, hyperlipidemia, history of atypical chest pain with negative stress testing, history of paroxysmal atrial fibrillation, tachybradycardia syndrome s/p dual-chamber pacemaker on September 23, 2022, history of acute vertigo, Menieres who presented with concern for chest pain w/ activity, not relieved w/ rest, improved w/ nitro and aspirin. Chest Pain Atrial fibrillation with RVR Hx of tachybradycardia syndrome s/p dual-chamber pacemaker Pt presenting with chest pain, relieved w/ nitro and aspirin. Pt missed her metoprolol in AM of arrival day. EKG noting atrial fibrillation with RVR. Trop x 3 neg. TSH wnl. 2023 ECHO: EF 60-65%, LV systolic fxn normal. LV wall motion normal. Echo this admission: EF of 55 to 60%, right ventricular systolic function normal, left ventricular systolic function normal. Left ventricular wall motion normal. c/w tele, c/w home metoprolol, c/w anticoagulation Cardio following, Medications being optimized. Acute kidney injury: baseline creatinine around 0.9 to 1.0, Cr jumped to 1.32 on 01/22, improved Cr now. Will resume HCTZ, hold amlod due to relatively lower BP (metoprolol dose is being increased) Hypertension At home: Pt on metoprolol 100mg in AM and 50mg in PM, amlodipine 5mg, HCTZ 12.5mg and losartan 100mg daily BP trending lower ? 2/2 irregular and higher HR Home meds being optimized, c/t monitor BP Continue other home meds as ordered Diet: HH DVT prophylaxis: eliquis CODE STATUS: wants CPR and defib but DNI Dispo: admit to PCU/tele. pt /ot. Admission and Anticipated Discharge Date Admission Date: January 20, 2025 Subjective Patient was seen and examined at bedside. Patient was lying in bed, on room air, NAD, resting comfortably. Patient denies any chest pain, denies palpitation, heart rate better controlled in AM Patient reports eating okay, moving bowels okay. Patient denies any shortness of breath and reports feeling better. Physical Exam Physical Exam: General: Alert, oriented. No acute distress Skin: No noted rashes or bruises Psych: Appropriate mood and affect HEENT: NC/AT Chest: Nontender to palpation. CV: irregular Resp: Breath sounds clear bilaterally, no increased effort of breathing Abdomen: Soft, nontender Extremities: Trace edema in lower extremities bilaterally. Results & Data Results & Data Vital Signs (Past 12 Hours) Vital Signs Temp Pulse Pulse Resp BP Pulse Ox O2 Del Method 01/23/25 15:42 36.8 C 74 18 119/65 97 Room Air 01/23/25 15:00 105 H 01/23/25 12:00 36.5 C 88 16 101/63 98 Room Air 01/23/25 08:40 111/74 01/23/25 08:00 118 H 01/23/25 08:00 36.5 C 87 18 94/56 L 97 Room Air
[2025-01-23] MEDS: METOPROLOL SUCC 50MG EXT REL TAB PO SCH (20:14)
[2025-01-24 06:38] LABS: BUN Creatinine Ratio 28.8 (10-20); Calcium 9.2 mg/dl (8.6-10.3); Creatinine Clr Calc Pharmacy 34.1 ml/min; Magnesium 2.1 mg/dl (1.7-2.4); Potassium 4.4 mmol/L (3.5-5.1)
[2025-01-24] MEDS ORDERED: LOSARTAN POTASSIUM 50 MG TAB PO SCH (09:00)
--- NOTE | 2025-01-24 11:33 | Cardiology Progress Note ---
Date of Service January 24, 2025 Assessment & Plan (1) Atrial fibrillation with rapid ventricular response: (2) Cardiac pacemaker in situ: (3) Hypertension: Plan 84 year old female with past medical history of paroxysmal atrial fibrillation, tachy-shahram s/p dual chamber pacemaker, dyslipidemia, labile hypertension, who presents to ED with chest pain. Found to be in afib with RVR. Admits to missing one dose of metoprolol [employer]. Echo with normal LVEF, mild valvular disease. - feels well today on exam - heart rates still mildly elevated on telemetry - increase metoprolol succinate to 100 mg in AM, 75 mg in PM - currently on heparin gtt, transition back to Eliquis once appropriate - continue to monitor on telemetry - continue amlodipine, HCTZ, losartan 01/23/2025 No significant symptoms but heart rate still trending higher. Antihypertensives held this morning hydrochlorothiazide and losartan due to relatively lower blood pressures. Plan: Increase metoprolol succinate to 100 mg twice per day. Hold amlodipine with goals to continue hydrochlorothiazide and losartan at reduced dose 01/24/2025 Atrial fibrillation with generally controlled ventricular response rate, tachybradycardia syndrome status post dual-chamber pacemaker insertion heart rates coming under better control. Patient back on Eliquis. Would discontinue amlodipine Resume losartan, hydrochlorothiazide on discharge Patient to promptly report worsening symptoms follow-up cardiology 1 month I spent a total of 35 minutes on the date of service in preparation, delivery, and documentation of the care provided to this patient excluding any time spent in the performance of separately billed services. Admission and Anticipated Discharge Date Admission Date: January 20, 2025 Subjective Patient seen and examined, chart, medications, telemetry reviewed. Patient ambulatory in room shortly prior to exam. No chest pain shortness of breath dizziness or lightheadedness. Physical Exam Constitutional: WD/WN, vitals as above no acute distress Eyes: PERRL, conjunctivae normal, anicteric sclerae Neck: trachea midline, no thyromegaly Respiratory: normal respiratory effort, lungs clear to auscultation Cardiovascular: Rate/Rhythm: + tachycardic and + irregularly irregular Heart Sounds: no gallop Vessels: no JVD Gastrointestinal (Abdomen): normal bowel sounds, soft, nontender, no hepatosplenomegaly Results & Data Vital Signs (Past 12 Hours) Vital Signs Temp Pulse Pulse Resp BP Pulse Ox O2 Del Method 01/24/25 07:35 36.5 C 86 18 123/82 93 Room Air 01/24/25 03:18 36.5 C 58 L 18 116/78 95 Room Air 01/24/25 01:00 110 H 01/24/25 00:44 Room Air Laboratory Results Laboratory Results - last 24 hr 01/24/25 05:27 Sodium 140 Potassium 4.4 Chloride 107 Carbon Dioxide 28 Anion Gap 5 BUN 38 H Creatinine 1.32 H Est Cr Clr Drug Dosing 34.1 eGFR 39.81 BUN/Creatinine Ratio 28.8 H Glucose 97 Calcium 9.2 Magnesium 2.1 (3) Hypertension Hypertension type: unspecified Qualified Code(s): I10 - Essential (primary) hypertension
[2025-01-24 11:57] VITALS: TEMP 98.2; O2SAT 96
--- NOTE | 2025-01-24 12:21 | Discharge Summary ---
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 Patient states that she was active this morning when the chest pain started and it was not relieved with rest. States she did not take her medications this morning. Did call 911 to take her to the hospital and she did receive Ativan, aspirin and nitro with noted improvement in her symptoms. She also received multiple doses of IV Lopressor 5 mg in the emergency room as well as her home po metoprolol dosing for the day. At the time of exam she was resting comfortably and denied acute concerns. Prior to ED, cardiology was consulted and contacted and recommended admission for further evaluation and management. Admission Exam Per Admitting Provider General: Alert, oriented. No acute distress Skin: No noted rashes or bruises Psych: Appropriate mood and affect HEENT: NC/AT Chest: Nontender to palpation. CV: irregular Resp: Breath sounds clear bilaterally, no increased effort of breathing Abdomen: Soft, nontender Extremities: Trace edema in lower extremities bilaterally. Principal Diagnosis Chest Pain Atrial fibrillation with RVR Hx of tachybradycardia syndrome s/p dual-chamber pacemaker Discharge Exam General: Alert, oriented. No acute distress Skin: No noted rashes or bruises Psych: Appropriate mood and affect HEENT: NC/AT Chest: Nontender to palpation. CV: irregular Resp: Breath sounds clear bilaterally, no increased effort of breathing Abdomen: Soft, nontender Extremities: Trace edema in lower extremities bilaterally. 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 Chest Pain Atrial fibrillation with RVR Hx of tachybradycardia syndrome s/p dual-chamber pacemaker Pt presenting with chest pain, relieved w/ nitro and aspirin. Pt missed her metoprolol in AM of arrival day. EKG noting atrial fibrillation with RVR. Trop x 3 neg. TSH wnl. 2023 ECHO: EF 60-65%, LV systolic fxn normal. LV wall motion normal. Echo this admission: EF of 55 to 60%, right ventricular systolic function normal, left ventricular systolic function normal. Left ventricular wall motion normal. Continue with anticoagulation, metoprolol dose has been uptitrated. Cardiology evaluated, appreciate recommendation. Amlodipine has been discontinued. Losartan dose has been decreased. Acute kidney injury: baseline creatinine around 0.9 to 1.0, Cr jumped to 1.32 on 01/22, improved Cr now. Pt advised to f/u w/ pcp office with in a week time to follow up on the renal function. Hypertension At home: Pt on metoprolol 100mg in AM and 50mg in PM, amlodipine 5mg, HCTZ 12.5m g and losartan 100mg daily BP trending lower ? 2/2 irregular and higher HR Cards meds as above. Continue other home meds as ordered Diet: DVT prophylaxis: kelly CODE STATUS: wants CPR and defib but DNI Dispo: admit to PCU/tele. pt /ot. Patient is being discharged to home with following instructions at the point of discharge: Follow-up with your primary care physician within a week time and likely you will need labs CBC/CMP/magnesium/phosphorus. Your metoprolol dose has been increased, your amlodipine has been discontinued. Follow-up with cardiology in 1-2 months time upon discharge. Take your medications as prescribed. Please make sure that you are able to get your medications today by calling your pharmacy before you leave the hospital so that your treatment continuity is not broken. Home Health Attestation I certify that this patient is under my care and that I, or a physicians billing and accounting staff assistant working with me, had a face to-face encounter that meets the home health [id number] encounter requirements with this patient. The encounter with the patient was in whole, or in part, for the following medical condition, which is the primary reason for home health care (list medical condition): I certify that, based on my findings, the following services are medically necessary home health services: My clinical findings support the need for the above services because: Further, I certify that my clinical findings support that this patient is homebound (i.e. absences from home require considerable and taxing effort and are for medical reasons or rastafarian services or infrequently or of short duration when for other reasons) because: Certification for Home Health Services: Based on the above findings, I certify that this patient is confined to the home and needs intermittent longterm care, physical therapy and/or speech therapy or continues to need occupational therapy. The patient is under my care, and I have initiated the establishment of the plan of care. This patient will be followed by a physician who will periodically review the plan of care. Total Time Total Time Spent Total Time Spent (In Minutes): 35 Discharge Plan Discharge Items Patient Disposition: Home - Self-Care Reason For Visit: CHEST PAIN Discharge Diagnosis: Chest Pain Atrial fibrillation with RVR Hx of tachybradycardia syndrome s/p dual-chamber pacemaker Activity: Resume your previous activity Non-emergency contact: Primary Care Provider Call non-emergency contact if: you have any medication questions, your symptoms worsen and your temperature is above 101 Follow-up/Referrals: Daniel Madrid DO [Primary Care Provider] - 02/01/25 2:00 pm Diet: Heart Healthy Addtl Attending Provider Instructions: Follow-up with your primary care physician within a week time and likely you will need labs CBC/CMP/magnesium/phosphorus. Your metoprolol dose has been increased, your amlodipine has been discontinued. Follow-up with cardiology in 1-2 months time upon discharge. Take your medications as prescribed. Please make sure that you are able to get your medications today by calling your pharmacy before you leave the hospital so that your treatment continuity is not broken. Pending Studies at Discharge: No Stand-Alone Forms: My liveBooks, Smoking Cessation Medications and DC Order Prescriptions: New losartan 50 mg Tablet 50 mg PO DAILY Qty: 30 0RF Continued potassium citrate 10 mEq (1,080 mg) tablet extended release 10 meq PO DAILY hydrochlorothiazide 12.5 mg capsule 12.5 mg PO DAILY Eliquis 5 mg tablet 5 mg PO BID atorvastatin 40 mg tablet 40 mg PO DAILY B-complex with vitamin C [Vitamin B Complex-C] Tablet 1 tab PO DAILY Changed metoprolol succinate 100 mg tablet extended release 24 hr 100 mg PO BID Qty: 60 0RF Discontinued amlodipine 5 mg tablet 5 mg PO DAILY losartan 100 mg tablet 100 mg PO DAILY metoprolol succinate 50 mg Tablet Extended Release 24 Hr 50 mg PO HS Qty: 30 0RF Discharge Orders: Discharge Order (Routine); Ordered 01/24/25 Ordered By: Yael Alonso Admission Data Admit Date/Time: 01/20/25 18:56 Attending Provider: Yael Alonso Admit Provider: Caitlin Delgado Primary Care Provider: Daniel Madrid Other Providers: Caitlin Delgado; Yanick Werner
[2025-01-24 12:27] VITALS: BP 116/64; PULSE 90
== END 2025-01-24 13:57 | disposition home or self-care (01) | DRG 309 ==
LOC: ED 13:29 → EDINP 18:56 → SUATTDRO 18:56 → 4W 01-21 00:08

== ENCOUNTER 2025-07-22 12:14 | Inpatient (IN) ==
--- NOTE | 2025-07-22 12:44 | Emergency Department Note ---
Impression & Plan DANNI (acute kidney injury), Diarrhea, Acute dehydration ED Provider Note Name: BULMARO DONOHUE Age: 84 Sex: Female Arrives Via: Walk-In Informant: Patient ED Provider: Daniel Warren MD Chief Complaint: Diarrhea and weakness Impression: As per impression Medical Decision Makin-year-old female arrives for evaluation severe weakness. Has been having diarrhea for the last week. Is getting a bit dark but denies any bloody or truly black stool. Hemoglobin is stable. Vital signs look good. She given a liter with improvement in symptoms. Her laboratory workup does reveal an elevated creatinine and BUN. Given her DANNI and inability to ambulate without severe weakness let alone her age and distance from hospital plan for hospitalization for rehydration and monitoring of her kidney function. Triage/Nursing Notes reviewed by Me Differential:Infection, dehydration, metabolic abnormality, hypo/hyperglycemia, electrolyte disturbance, anemia, hypoxia, cardiac sources, intracerebral event, toxicologic, neurologic, as well as other pathologies. Vital Signs: reviewed and remarkable for no significant abnormalities Interventions: nss bolus Labs:ED labs Reviewed by me and remarkable for elevated kidney levels EKG:As per my interpretation. Indication weakness. Atrial paced 70 bpm QTc of 398. There is no ectopy nor ischemia appreciated. No significant change from 01/20/25. Cardiac/Tele Monitoring: Cardiac Monitoring: An Order was placed for continuous cardiac monitoring. The monitor shows a rate of 70 with a paced rhythm. Consults:Discussed with [facility]ist service who will further manage. Plan: Disposition:Hospitalization. Condition: fair History of Present Illness: 84-year-old female arrives for evaluation of weakness. Patient notes for last week she has been having explosive diarrheal outburst 3-4 times a day. Increasing weakness. The diarrhea is dark with mucus throughout it. She also feels like she sees pieces of lettuce for string within the stool. Denies any blood in the stool. She has been trying Pepto-Bismol started yesterday without improvement. States her weakness is to the point where she can even go up the stairs which is highly unusual for her. She is usually a very active woman states she just feels very rundown. Denies any specific abdominal pain. She has been having a fair amount of nausea and having 0 appetite this has not really eaten much in the last week. Denies any falls, trauma, injuries. She is not currently having any other significant symptoms. No history of significant diarrheal issues but rather more on the constipation side. She has been on no antibiotics recently. Does not use well water or drink stream water. No known sick contacts. Past Medical History: A-fib, paced, vertigo, hypertension, dyslipidemia Home Medications: Eliquis amongst others Allergies: No known drug allergy Vitals:Blood Pressure: 130/75, Pulse 75, RR 16, T 37.0C, O2 95% on RA Physical Exam: GENERAL: Patient is tired/dehydrated appearing and in mild distress. Dry mucous membranes RESPIRATORY: No dyspnea. Clear to auscultation and equal bilaterally. CARDIOVASCULAR: Regular rate and rhythm.No murmur appreciated. GASTROINTESTINAL: Abdomen soft, non-tender, no peritonitis. EXTREMITIES: Normal motion all extremities, no cyanosis, no edema. NEUROLOGIC: Alert and oriented. No focal neurologic deficits appreciated SKIN: No rash, no jaundice, no diaphoresis. PSYCH: Appropriate GCS: 15 ED Course: Times/Reassessments: Patient feels a bit better after IV fluids and still feeling quite weak and is agreeable to hospitalization. Daniel Warren MD Past Med/Surg History Problem List (Updated 07/22/25 @ 15:00 by Daniel Warren MD) Acute dehydration (Acute) Diarrhea (Acute) DANNI (acute kidney injury) (Acute) S/P cardiac pacemaker procedure Chronic a-fib Acute renal failure Diarrhea Cardiac pacemaker in situ Chest pain (Acute) Atrial fibrillation with rapid ventricular response (Acute) Elevated brain natriuretic peptide (BNP) level (Acute) Atrial fibrillation with rapid ventricular response (Acute) Chest pain (Acute) Sensorineural hearing loss (SNHL) of left ear with restricted hearing of right ear Vertigo Sudden-onset sensorineural hearing loss Tachy-shahram syndrome Atrial fibrillation Vaginal prolapse Prolapse of bladder Hyperlipidemia Hypertension Hematuria Surgical History H/O: hysterectomy History of dilatation and curettage Hx of appendectomy Family History Mother Hypertension Father Bladder cancer Stomach cancer Son Kidney stones Social History Smoking Status: Never smoker Tobacco Type: Cigarettes Second Hand Exposure: Yes; Do You Dip or Chew Tobacco: No; Hx Alcohol Use: No Hx Substance Use: No Preferred Language: Estonian Communication Ability: Effective Manager Plumbing Required: No Beliefs That Will Affect Care: None Current Living Situation: Alone Current Living Situation Comment: pt currently resides at home Feels Safe at Home: Yes Assistive Devices: Cane and Walker Allergies Allergies Allergy/AdvReac Type Severity Reaction Status Date / Time No Known Allergies Allergy Verified 01/20/25 18:15 Home Meds Home Medications Medication Instructions Recorded Confirmed apixaban 5 mg tablet (Eliquis) 5 mg PO BID 03/12/24 07/22/25 hydrochlorothiazide 12.5 mg capsule 12.5 mg PO DAILY 03/12/24 07/22/25 potassium citrate 10 mEq (1,080 10 meq PO Q OTHER DAY 03/12/24 07/22/25 mg) tablet,extended release atorvastatin 40 mg tablet 40 mg PO DAILY 01/20/25 07/22/25 conjugated estrogens 0.625 mg/gram 0.5 applic vaginal 3XWK 07/22/25 07/22/25 vaginal cream (Premarin) Previous Rx's Medication Instructions Recorded losartan 50 mg tablet 50 mg PO DAILY #30 tabs 01/24/25 metoprolol succinate 100 mg 100 mg PO BID #60 tabs 01/24/25 tablet,extended release 24 hr Results & Data (ED) Vital Signs Vital Signs - 24 hr 07/22/25 12:16 07/22/25 13:30 Temperature 37.0 C Temperature Source Oral Pulse Rate 75 75 Respiratory Rate 16 Respiratory Effort / Characteristics Non-Labored Spontaneous Respiratory Depth Normal Respiratory Pattern Regular Blood Pressure 130/75 Blood Pressure Mean 93 Blood Pressure Position Sitting Pulse Oximetry 95 Oxygen Delivery Method Room Air Sepsis Recent Fever Within 48 Hours Yes Sepsis New/Unexplained Change in Mental Status No Sepsis Action Taken by Nursing No Action Required Laboratory Data 07/22/25 12:33 07/22/25 12:33 Lab Results 07/22/25 Range/Units 12:33 WBC 13.06 H (4.8-10.8) K/ul RBC 4.31 (4.20-5.40) M/uL Hgb 12.3 (12.0-16.0) g/dl Hct 36.6 L (37.0-47.0) % MCV 84.9 (80.0-100.0) fL MCH 28.5 (25.0-34.0) pg MCHC 33.6 (32.0-36.0) g/dL RDW Std Deviation 45.3 (36.4-46.3) fL RDW Coeff of Devorah 14.5 (11.5-14.5) % Plt Count 177 (130-400) K/uL MPV 12.7 H (9.4-12.4) fL Immature Gran % (Auto) 0.5 % Neut % (Auto) 79.9 % Lymph % (Auto) 7.7 % Mcminn % (Auto) 11.5 % Eos % (Auto) 0.1 % Baso % (Auto) 0.3 % Neut # (Auto) 10.45 H (1.40-6.50) K/uL Lymph # (Auto) 1.00 L (1.20-3.40) K/uL Mcminn # (Auto) 1.50 H (0.11-0.59) K/uL Eos # (Auto) 0.01 (0.00-0.50) K/uL Baso # (Auto) 0.04 (0.00-0.20) K/uL Immature Gran # (Auto) 0.06 (0.01-0.20) K/uL Sodium 136 (136-145) mmol/L Potassium 3.3 L (3.5-5.1) mmol/L Chloride 100 (98-107) mmol/L Carbon Dioxide 25 (21-32) mmol/L Anion Gap 11 (3-11) BUN 51 H (6-23) mg/dl Creatinine 2.15 H (0.6-1.2) mg/dl Est Cr Clr Drug Dosing Not Reportable eGFR 22.17 BUN/Creatinine Ratio 23.7 H (10-20) Glucose 122 H (70-99(Fasting)) mg/dl Calcium 9.4 (8.6-10.3) mg/dl Magnesium 2.2 (1.7-2.4) mg/dl Total Bilirubin 1.1 H (0.2-1.0) mg/dl Direct Bilirubin 0.3 H (0-0.2) mg/dl AST 53 H (13-39) U/L ALT 52 (7-52) U/L Alkaline Phosphatase 61 (34-104) U/L Total Creatine Kinase 130 (26-192) U/L Troponin I High Sens 27.1 H (0-14) pg/ml Total Protein 7.6 (6.0-8.3) gm/dl Albumin 3.5 (3.4-5.0) gm/dl Lipase 23 (11-82) U/L TSH 1.361 (0.300-4.500) uIu/ml Administered Medications Discontinued Medications Sodium Chloride (Nss) 1,000 mls @ 999 mls/hr IV .Q1H1M ONE Stop: 07/22/25 13:41 Last Admin: 07/22/25 13:14 Dose: 999 mls/hr Documented By: ARIELLE Discharge Plan Visit Data Chief Complaint: Diarrhea Stated Complaint: DIARRHEA ED Provider: Daniel Warren Discharge Problem: DANNI (acute kidney injury), Diarrhea, Acute dehydration Patient Disposition: Home - Self-Care Condition: Fair Forms Stand Alone Forms: [facility], Important Visit Information Prescriptions Prescriptions: No Action potassium citrate 10 mEq (1,080 mg) tablet extended release 10 meq PO Q OTHER DAY hydrochlorothiazide 12.5 mg capsule 12.5 mg PO DAILY Eliquis 5 mg tablet 5 mg PO BID atorvastatin 40 mg tablet 40 mg PO DAILY losartan 50 mg Tablet 50 mg PO DAILY Qty: 30 0RF metoprolol succinate 100 mg tablet extended release 24 hr 100 mg PO BID Qty: 60 0RF Premarin 0.625 mg/gram cream 0.5 applic vaginal 3XWK Referrals Referrals: Daniel Madrid DO [Primary Care Provider] - Discharge Problem: Diarrhea Qualifiers: Diarrhea type: unspecified type Qualified Code(s): R19.7 - Diarrhea, unspecified
[2025-07-22 12:57] LABS: Hematocrit (blood only) 36.6 % (37.0-47.0); Hemoglobin 12.3 g/dl (12.0-16.0); Immature Granulocytes # (auto) 0.06 K/uL (0.01-0.20); Immature Granulocytes % (auto) 0.5 %; Mean Corpuscular Hemoglobin 28.5 pg (25.0-34.0); Mean Corpuscular Volume 84.9 fL (80.0-100.0); Platelet Count 177 K/uL (130-400); RDW Standard Deviation 45.3 fL (36.4-46.3); Red Blood Count 4.31 M/uL (4.20-5.40); White Blood Count 13.06 K/ul (4.8-10.8)
[2025-07-22] MEDS: SODIUM CHLORIDE 0.9% 1,000 ML IV ONE (13:14)
[2025-07-22 13:16] LABS: Alanine Aminotransferase 52 U/L (7-52); Albumin Level 3.5 gm/dl (3.4-5.0); Alkaline Phosphatase 61 U/L (34-104); Anion Gap 11 (3-11); Bilirubin,Total 1.1 mg/dl (0.2-1.0); Blood Urea Nitrogen 51 mg/dl (6-23); Calcium 9.4 mg/dl (8.6-10.3); Carbon Dioxide 25 mmol/L (21-32); Chloride 100 mmol/L (98-107); Creatine Kinase 130 U/L (26-192); Glucose 122 mg/dl (70-99(Fasting)); Lipase 23 U/L (11-82); Magnesium 2.2 mg/dl (1.7-2.4); Potassium 3.3 mmol/L (3.5-5.1); Sodium 136 mmol/L (136-145); Total Protein 7.6 gm/dl (6.0-8.3)
[2025-07-22 13:32] LABS: Thyroid Stimulating Hormone 1.361 uIu/ml (0.300-4.500)
--- NOTE | 2025-07-22 14:23 | History & Physical Report ---
Date of Service July 22, 2025 Assessment & Plan (1) Diarrhea: (2) Acute renal failure: (3) Chronic a-fib: (4) Tachy-shahram syndrome: (5) S/P cardiac pacemaker procedure: Plan: 84 year old female with history of Paroxysmal Atrial Fibrillation, TBS s/p PM, HTN, HLD presenting with diarrhea and weakness x 1 week. ACUTE GASTROENTERITIS WITH ACUTE RENAL FAILURE diarrhea 3-4x a week with generalized weakness crea 2.1 from baseline 1.3 stool PCR panel stool C diff Azithromycin 500mg PO daily x 5 days IV NSS hold Losartan, HCTZ replace K and check Mg and Ph repeat BMP, K, Mg, Ph tomorrow PT/OT eval EPISODE OF MELENA IN THE SETTING OF ACUTE GASTROENTERITIS resolved on Eliquis for A fib Hg 12 (baseline 12-13) Protonix 40mg IV BID monitor for recurrence PAROXYSMAL A FIB continue Metoprolol renally dose Eliquis TBS S/P PM HLD- hold Statin DVT prophylaxis already on Eliquis Conditional code Disposition observation status in med/surg Dany Vogel MD History of Present Illness Chief Complaint: weakness Primary Care Provider: Daniel Madrid, 84 year old female with history of Paroxysmal Atrial Fibrillation, TBS s/p PM, HTN, HLD presenting with diarrhea and weakness x 1 week. Patient states she has been having 3-4 episodes of diarrhea/day for the last week- associated with fever last Thursday, and black stools for 1-2 days which have resolved. (+) occasional nausea, no abdominal pain (+) poor appetite She has been feeling weak to the point where she can not even go up the stairs and has been sleeping in the cough. Patient is usually active prior to this episode. No recent antibiotics prescribed. At the ER, BP 130/75, HR 75, RR 16, 95. Crea elevated at 2.15 from baseline of 1.3 On exam, patient seen sitting up in bed, comfortable, appears tired. States she feels somewhat better since receiving IV fluids. No active abdominal pain, nausea. Allergies Allergy/AdvReac Type Severity Reaction Status Date / Time No Known Allergies Allergy Verified 01/20/25 18:15 Home Medications Medication Instructions Recorded Confirmed Type apixaban 5 mg tablet (Eliquis) 5 mg PO BID 03/12/24 07/22/25 History hydrochlorothiazide 12.5 mg capsule 12.5 mg PO DAILY 03/12/24 07/22/25 History potassium citrate 10 mEq (1,080 10 meq PO Q OTHER DAY 03/12/24 07/22/25 History mg) tablet,extended release atorvastatin 40 mg tablet 40 mg PO DAILY 01/20/25 07/22/25 History losartan 50 mg tablet 50 mg PO DAILY #30 tabs 01/24/25 07/22/25 Rx metoprolol succinate 100 mg 100 mg PO BID #60 tabs 01/24/25 07/22/25 Rx tablet,extended release 24 hr conjugated estrogens 0.625 mg/gram 0.5 applic vaginal 3XWK 07/22/25 07/22/25 History vaginal cream (Premarin) Past Med/Surg History Problem List (Updated 07/22/25 @ 15:00 by Daniel Warren MD) Acute dehydration (Acute) Diarrhea (Acute) DANNI (acute kidney injury) (Acute) S/P cardiac pacemaker procedure Chronic a-fib Acute renal failure Diarrhea Cardiac pacemaker in situ Chest pain (Acute) Atrial fibrillation with rapid ventricular response (Acute) Elevated brain natriuretic peptide (BNP) level (Acute) Atrial fibrillation with rapid ventricular response (Acute) Chest pain (Acute) Sensorineural hearing loss (SNHL) of left ear with restricted hearing of right ear Vertigo Sudden-onset sensorineural hearing loss Tachy-shahram syndrome Atrial fibrillation Vaginal prolapse Prolapse of bladder Hyperlipidemia Hypertension Hematuria Surgical History H/O: hysterectomy History of dilatation and curettage Hx of appendectomy Family History Mother Hypertension Father Bladder cancer Stomach cancer Son Kidney stones Social History Smoking Status: Never smoker Tobacco Type: Cigarettes Second Hand Exposure: Yes; Do You Dip or Chew Tobacco: No; Hx Alcohol Use: No Hx Substance Use: No Preferred Language: Northern Irish Communication Ability: Effective Hydraulic Plumber Required: No Beliefs That Will Affect Care: None Current Living Situation: Alone Current Living Situation Comment: pt currently resides at home Other Information That Helps Us Care for You: No Feels Safe at Home: Yes Safety Concerns: Feels Safe At This Time Assistive Devices: Denture - Upper and Glasses Review of Systems Review of Systems: all noted and negative except for above Physical Exam Physical Exam: General- oriented x 3, not in distress, speaks in sentences with no effort or accessory muscle use Head- atraumatic Eyes- PERRL, EOMI, anicteric ENT- oropharynx clear Neck- supple, no JVD, no adenopathy, no thyromegaly; carotids +2/2, no bruits appreciated Lungs- clear to auscultation bilaterally, no rales/wheezes Heart- normal rate, regular rhythm; no murmur, no gallop, no rub appreciated Abdomen- normal bowel sounds, nondistended, soft, nontender, no masses or hepatosplenomegaly Extremities- no pretibial edema, no calf tenderness; peripheral pulses intact Neuro- alert, oriented x 3; CN 2-12 grossly intact; motor 5/5 bilaterally;sensation 100% on all extremities; no other gross focal neurologic deficits Skin- warm & dry Results & Data Results & Data Vital Signs (Past 12 Hours) Vital Signs Temp Pulse Resp BP Pulse Ox O2 Del Method 07/22/25 13:30 75 07/22/25 12:16 37.0 C 75 16 130/75 95 Room Air all noted and reviewed including below Code Status & VTE Plan VTE Prophylaxis Plan VTE Prophylaxis will be ordered: Yes
[2025-07-22] MEDS: SODIUM CHLORIDE 0.9% 1,000 ML IV SCH (15:13)
[2025-07-22] MEDS: POTASSIUM CHLORIDE 10 MEQ TABCR PO STA (15:14)
[2025-07-22] MEDS: Patient's HEIGHT &/or WEIGHT Needed STA (15:18)
[2025-07-22] MEDS: AZITHROMYCIN 250 MG TAB PO SCH (17:37)
[2025-07-22] MEDS: APIXABAN 2.5 MG TAB PO SCH (20:47)
[2025-07-22] MEDS: PANTOprazole 40 MG/10 ML SYR IV SCH (20:48)
[2025-07-22] MEDS: METOPROLOL SUCC 50MG EXT REL TAB PO SCH (20:48)
[2025-07-22 21:23] LABS: Cdiff Toxin B Gene (2yr or >) Negative Cdiff Gene (Neg)
[2025-07-22 21:56] LABS: Adenovirus F 40/41 PCR Not Detected (NotDetected); Campylobacter PCR Not Detected (NotDetected); Enteroaggregative E.coli(EAEC) Not Detected (NotDetected); Shiga-like Toxin E.coli (STEC) Not Detected (NotDetected); Vibrio species PCR Not Detected (NotDetected)
[2025-07-23 00:04] LABS: Appearance Urine Turbid (Clear); Bacteria Urine Automated 4+ (None Seen); Epithelial Cell Urine Auto 0-2 /hpf (0-2); Glucose Urine UA Negative (Negative); WBC Urine Automated >50 /hpf (0-5)
[2025-07-23] MEDS ORDERED: LOPERAMIDE HCL 2 MG CAP PO PRN (01:11)
[2025-07-23] MEDS: ACETAMINOPHEN 325 MG TAB PO PRN (01:25)
[2025-07-23] MEDS: METOPROLOL SUCC 25MG EXT REL TAB PO STA (01:39)
[2025-07-23 05:52] LABS: Hematocrit (blood only) 33.7 % (37.0-47.0); Hemoglobin 11.2 g/dl (12.0-16.0); Immature Granulocytes # (auto) 0.04 K/uL (0.01-0.20); Immature Granulocytes % (auto) 0.4 %; Mean Corpuscular Hemoglobin 28.8 pg (25.0-34.0); Mean Corpuscular Volume 86.6 fL (80.0-100.0); Platelet Count 145 K/uL (130-400); RDW Standard Deviation 46.5 fL (36.4-46.3); Red Blood Count 3.89 M/uL (4.20-5.40); White Blood Count 10.76 K/ul (4.8-10.8)
[2025-07-23 06:09] LABS: Alanine Aminotransferase 42.0 U/L (7-52); Albumin Globulin Ratio 0.9 (0.9-2); Albumin Level 3.1 gm/dl (3.4-5.0); Alkaline Phosphatase 53.0 U/L (34-104); Anion Gap 6.0 (3-11); Bilirubin,Total 0.8 mg/dl (0.2-1.0); Blood Urea Nitrogen 42.0 mg/dl (6-23); Calcium 8.7 mg/dl (8.6-10.3); Carbon Dioxide 26.0 mmol/L (21-32); Chloride 107.0 mmol/L (98-107); Creatinine Clr Calc Pharmacy 29.8 ml/min; Globulin 3.3 gm/dl (2.5-4.0); Glucose 105.0 mg/dl (70-99(Fasting)); Magnesium 2.1 mg/dl (1.7-2.4); Potassium 3.2 mmol/L (3.5-5.1); Sodium 139.0 mmol/L (136-145); Total Protein 6.4 gm/dl (6.0-8.3)
[2025-07-23] MEDS: POTASSIUM CITRATE 10 MEQ TAB PO SCH (08:06)
--- NOTE | 2025-07-23 11:26 | Hospitalist Progress Note ---
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 #Diarrhea/Melena -Started on week ago with 2 days of low grade fevers -Multiple dark tarry bowel movements per day -She took pepto bismol one day but her stools were black before taking -One day with nausea and non bloody emesis but none since -Daughter states she has had positive FOBT for the past 6 months at her PCP's office -Stool studies including C. diff negative -Unclear if this is a viral gastroenteritis vs upper GI bleed given melena -Hgb down to 11.2 from 12.3 yesterday. Could be dilutional from IVF Plan -Holding home eliquis given melena -Will ask GI to evaluate -Protonix IV BID -No indication for azith. DC -CLD as tolerated -IVF -Follow Hgb. Transfuse < 7 #DANNI on CKD3 -Pre renal from diarrhea/volume loss -Improved with IVF Plan -Resume home losartan tomorrow -Hold home HCTZ -Avoid nephrotoxic agents if possible -BMP in AM #Hypokalemia -Replace and follow -Mg reviewed, normal #Chronic Afib -Holding eliquis as above. resume ROCKY -Continue Toprol for RC #HTN -Holding HCTZ for now -Continue toprol and ARB #HLD -Resume home statin I spent a total of 51 minutes coordinating, documenting, and providing care for this patient excluding time spent in the performance of separately billed services. This included personally reviewing all current laboratories and imaging studies, medical reconciliation, outpatient chart review and discussion with specialists Admission and Anticipated Discharge Date Admission Date: July 22, 2025 Subjective Feeling better but still c/o diarrhea. dark stools. d/w daugher on phone Physical Exam 2 Physical Exam: Vitals and labs reviewed General: elderly appearing in NAD HEENT: EOMI, PERRLA Neck: Supple Cardiac: RRR no rubs gallops or murmurs Lungs: CTA no rhonchi wheezing or rales Abd: S NT ND BS positive : Deffered MSK: Full ROM. No obvious deformities Ext: No Edema cyanosis Skin: Warm, Dry Neuro: AOx3 No focal deficits. Psych: Normal Mood Results & Data Results & Data Vital Signs (Past 12 Hours) Vital Signs Temp Pulse Resp BP Pulse Ox O2 Del Method 07/23/25 10:29 72 131/65 07/23/25 07:10 36.5 C 73 16 180/72 H 97 Room Air 07/23/25 02:26 37.4 C 73 16 129/75 92 Room Air 07/22/25 23:35 38.1 C H 69 18 168/67 H 96 Room Air Laboratory Results Abnormal lab results 07/22/25 07/22/25 07/22/25 Range/Units 12:33 14:23 23:18 WBC 13.06 H (4.8-10.8) K/ul RBC (4.20-5.40) M/uL Hgb (12.0-16.0) g/dl Hct 36.6 L (37.0-47.0) % RDW Std Deviation (36.4-46.3) fL RDW Coeff of Devorah (11.5-14.5) % MPV 12.7 H (9.4-12.4) fL Neut # (Auto) 10.45 H (1.40-6.50) K/uL Lymph # (Auto) 1.00 L (1.20-3.40) K/uL [place] # (Auto) 1.50 H (0.11-0.59) K/uL Potassium 3.3 L (3.5-5.1) mmol/L BUN 51 H (6-23) mg/dl Creatinine 2.15 H (0.6-1.2) mg/dl BUN/Creatinine Ratio 23.7 H (10-20) Glucose 122 H (70-99(Fasting)) mg/dl Total Bilirubin 1.1 H (0.2-1.0) mg/dl Direct Bilirubin 0.3 H (0-0.2) mg/dl AST 53 H (13-39) U/L Troponin I High Sens 27.1 H 19.1 H D (0-14) pg/ml Albumin (3.4-5.0) gm/dl Urine Appearance Turbid A (Clear) Urine Protein 2+ H (Negative) Urine Blood 2+ H (Negative) Ur Leukocyte Esterase 3+ H (Negative) Urine WBC (Auto) >50 H (0-5) /hpf Urine RBC (Auto) 11-20 H (0-2) /hpf U Hyaline Cast (Auto) 11-20 H (0-2) /lpf Urine Bacteria (Auto) 4+ H (None Seen) Hyaline Casts Present A (None Presnt) /lpf 07/23/25 Range/Units 05:15 WBC (4.8-10.8) K/ul RBC 3.89 L (4.20-5.40) M/uL Hgb 11.2 L (12.0-16.0) g/dl Hct 33.7 L (37.0-47.0) % RDW Std Deviation 46.5 H (36.4-46.3) fL RDW Coeff of Devorah 14.6 H (11.5-14.5) % MPV (9.4-12.4) fL Neut # (Auto) 8.33 H (1.40-6.50) K/uL Lymph # (Auto) 1.02 L (1.20-3.40) K/uL [place] # (Auto) 1.33 H (0.11-0.59) K/uL Potassium 3.2 L (3.5-5.1) mmol/L BUN 42 H (6-23) mg/dl Creatinine 1.52 H D (0.6-1.2) mg/dl BUN/Creatinine Ratio 27.6 H (10-20) Glucose 105 H (70-99(Fasting)) mg/dl Total Bilirubin (0.2-1.0) mg/dl Direct Bilirubin (0-0.2) mg/dl AST 40 H (13-39) U/L Troponin I High Sens (0-14) pg/ml Albumin 3.1 L (3.4-5.0) gm/dl Urine Appearance (Clear) Urine Protein (Negative) Urine Blood (Negative) Ur Leukocyte Esterase (Negative) Urine WBC (Auto) (0-5) /hpf Urine RBC (Auto) (0-2) /hpf U Hyaline Cast (Auto) (0-2) /lpf Urine Bacteria (Auto) (None Seen) Hyaline Casts (None Presnt) /lpf
[2025-07-23] MEDS: POTASSIUM CHLORIDE CRTAB 20 MEQ TABCR PO STA (11:28)
--- NOTE | 2025-07-23 11:51 | Electrocardiogram Report ---
Test Reason : Blood Pressure : */* mmHG Vent. Rate : 72 BPM Atrial Rate : 72 BPM P-R Int : 192 ms QRS Dur : 90 ms QT Int : 364 ms P-R-T Axes : 11 -22 1 degrees QTcB Int : 398 ms Atrial-paced rhythm Poor R wave progression, consider anterior DE vs. lead placement vs. LVH Abnormal ECG When compared with ECG of 20-Jan-2025 18:12, Significant changes have occurred Confirmed by Joshua Oh ([id number]) on 07/23/2025 11:51:10 AM Referred By: REFERRED SELF Confirmed By: Joshua Oh
[2025-07-24 07:41] LABS: Hematocrit (blood only) 33.4 % (37.0-47.0); Hemoglobin 10.9 g/dl (12.0-16.0); Immature Granulocytes # (auto) 0.06 K/uL (0.01-0.20); Immature Granulocytes % (auto) 0.7 %; Mean Corpuscular Hemoglobin 28.5 pg (25.0-34.0); Mean Corpuscular Volume 87.2 fL (80.0-100.0); Platelet Count 163 K/uL (130-400); RDW Standard Deviation 46.7 fL (36.4-46.3); Red Blood Count 3.83 M/uL (4.20-5.40); White Blood Count 8.38 K/ul (4.8-10.8)
[2025-07-24 08:03] LABS: Anion Gap 6.0 (3-11); Blood Urea Nitrogen 24.0 mg/dl (6-23); Calcium 8.6 mg/dl (8.6-10.3); Carbon Dioxide 27.0 mmol/L (21-32); Chloride 109.0 mmol/L (98-107); Creatinine Clr Calc Pharmacy 43.6 ml/min; Glucose 109.0 mg/dl (70-99(Fasting)); Potassium 3.6 mmol/L (3.5-5.1); Sodium 142.0 mmol/L (136-145)
[2025-07-24] MEDS: ATORVASTATIN 40 MG TAB PO SCH (08:06)
[2025-07-24] MEDS: LOSARTAN POTASSIUM 50 MG TAB PO SCH (08:06)
--- NOTE | 2025-07-24 09:40 | Hospitalist Progress Note ---
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 #Diarrhea/Melena -Started on week ago with 2 days of low grade fevers -Multiple dark tarry bowel movements per day -She took pepto bismol one day but her stools were black before taking -One day with nausea and non bloody emesis but none since -Daughter states she has had positive FOBT for the past 6 months at her PCP's office -Stool studies including C. diff negative -Unclear if this is a viral gastroenteritis vs upper GI bleed given melena -Hgb down to 10.9 from 12.3 on admission . Could be dilutional from IVF Plan -Holding home eliquis given melena -Will ask GI to evaluate -Protonix IV BID -No indication for azith. DC -CLD as tolerated. -Can DC IVF -Follow Hgb. Transfuse < 7 #DANNI on CKD3 -Cr 2.1--->1.0 -Pre renal from diarrhea/volume loss -Improved with IVF Plan -Resume home losartan today -Hold home HCTZ -Avoid nephrotoxic agents if possible -BMP in AM -DC IVF #Hypokalemia -Replace and follow -Mg reviewed, normal #Chronic Afib -Holding eliquis as above. resume ROCKY -Continue Toprol for RC #HTN -Holding HCTZ for now -Continue toprol and ARB #HLD -Resume home statin I spent a total of 45 minutes coordinating, documenting, and providing care for this patient excluding time spent in the performance of separately billed services. This included personally reviewing all current laboratories and imaging studies, medical reconciliation, outpatient chart review and discussion with specialists Admission and Anticipated Discharge Date Admission Date: July 24, 2025 Subjective Feeling better no more diarrhea. no abd pain n/v. one dark stool overnight but formed Physical Exam Physical Exam: Vitals and labs reviewed General: elderly appearing in NAD HEENT: EOMI, PERRLA Neck: Supple Cardiac: RRR no rubs gallops or murmurs Lungs: CTA no rhonchi wheezing or rales Abd: S NT ND BS positive : Deffered MSK: Full ROM. No obvious deformities Ext: No Edema cyanosis Skin: Warm, Dry Neuro: AOx3 No focal deficits. Psych: Normal Mood Results & Data Results & Data Vital Signs (Past 12 Hours) Vital Signs Temp Pulse Resp BP Pulse Ox O2 Del Method 07/24/25 07:18 37.1 C 75 16 159/69 H 95 Room Air 07/23/25 23:29 37.1 C 71 16 151/66 H 97 Room Air Laboratory Results Abnormal lab results 07/24/25 Range/Units 06:59 RBC 3.83 L (4.20-5.40) M/uL Hgb 10.9 L (12.0-16.0) g/dl Hct 33.4 L (37.0-47.0) % RDW Std Deviation 46.7 H (36.4-46.3) fL RDW Coeff of Devorah 14.6 H (11.5-14.5) % Lymph # (Auto) 0.85 L (1.20-3.40) K/uL [place] # (Auto) 0.91 H (0.11-0.59) K/uL Chloride 109 H (98-107) mmol/L BUN 24 H (6-23) mg/dl BUN/Creatinine Ratio 23.1 H (10-20) Glucose 109 H (70-99(Fasting)) mg/dl
--- NOTE | 2025-07-24 12:35 | Gastrointestinal Consultation ---
Date of Consultation July 24, 2025 Assessment & Plan (1) Diarrhea: Diarrhea and melena resolved. Patient is eating a clear liquid diet at present. Will discuss with Dr. Olsen regarding any further GI plans prior to advancing patient's diet. Supervising Physician Co-Signing Physician Notes I saw and examined this patient with our nurse practitioner and agree with her assessment and plan. Medical picture most consistent with acute gastroenteritis which clinically is resolving. However patient gives history of having black thick stool during these episodes. This occurred prior to her taking Pepto- Bismol. In addition over the last year she has had 2 fecal occult blood test that were positive. In light of the possibility that she may have underlying pathology to explain Hemoccult positive stool we will proceed with endoscopy and colonoscopy in AM. Patient is agreeable. History of Present Illness Reason for Consultation: Melena, diarrhea Attending Physician: Jason Perez, History of Present Illness Patient is an 84 yo female who presented to [facility] with 1 week of diarrhea and dark stools. She notes that she was in [place], [place] last week. She returned home and then developed 3-4 episodes of diarrhea daily. She notes she had 1-2 days of black tarry stools. She notes she was treating herself at home with pedialyte and Pepto Bismol. She notes she had dark stool before Pepto, but notes Pepto made it worse. The black stool has since resolved. She notes she was having nausea and abdominal discomfort, but now is feeling quite well. She is eating a liquid diet at the time of my visit, but was asking for more food. She notes she is eager to go home. She takes Eliquis. She does not use other OTC NSAIDs. Her Hgb upon presentation was 12.3 and is now 10.9. BUN 24, Cr 1.04. Stool PCR negative, C diff negative. No heartburn or reflux. Last colonoscopy 45 years ago at [facility]. Allergies Allergy/AdvReac Type Severity Reaction Status Date / Time No Known Allergies Allergy Verified 01/20/25 18:15 Home Medications Medication Instructions Recorded Confirmed Type apixaban 5 mg tablet (Eliquis) 5 mg PO BID 03/12/24 07/22/25 History hydrochlorothiazide 12.5 mg capsule 12.5 mg PO DAILY 03/12/24 07/22/25 History potassium citrate 10 mEq (1,080 10 meq PO Q OTHER DAY 03/12/24 07/22/25 History mg) tablet,extended release atorvastatin 40 mg tablet 40 mg PO DAILY 01/20/25 07/22/25 History losartan 50 mg tablet 50 mg PO DAILY #30 tabs 01/24/25 07/22/25 Rx metoprolol succinate 100 mg 100 mg PO BID #60 tabs 01/24/25 07/22/25 Rx tablet,extended release 24 hr conjugated estrogens 0.625 mg/gram 0.5 applic vaginal [id number] 07/22/25 07/22/25 History vaginal cream (Premarin) Patient History Surgical History H/O: hysterectomy History of dilatation and curettage Hx of appendectomy Family History Mother Hypertension Father Bladder cancer Stomach cancer Son Kidney stones Social History Smoking Status: Never smoker Tobacco Type: Cigarettes Second Hand Exposure: Yes; Do You Dip or Chew Tobacco: No; Hx Alcohol Use: No Hx Substance Use: No Preferred Language: Yakut Communication Ability: Effective Diet Supervisor Required: No Beliefs That Will Affect Care: None Current Living Situation: Alone Current Living Situation Comment: pt currently resides at home Other Information That Helps Us Care for You: No Feels Safe at Home: Yes Safety Concerns: Feels Safe At This Time Assistive Devices: Cane and Glasses Review of Systems Constitutional: no fever and no chills Respiratory: no cough and no dyspnea Cardiovascular: no chest pain Gastrointestinal: diarrhea resolved Physical Exam Constitutional: well developed Respiratory: normal respiratory effort Cardiovascular: Rate/Rhythm: regular rate Gastrointestinal (Abdomen): Inspection/Auscultation: abdomen normal to inspection Psychiatric: Orientation: alert and oriented x 3 Results & Data Vital Signs (Past 12 Hours) Vital Signs Temp Pulse Resp BP Pulse Ox O2 Del Method 07/24/25 07:18 37.1 C 75 16 159/69 H 95 Room Air PG Care Time/CCT Total # of Minutes Spent Total Time Spent with Patient: Total time spent is greater than 50% in coordination of care (as documented) at patient's floor/unit and/or counseling patient: Coding Level of Care Code 05790 INT INP/OBS CARE 2/55MIN Diagnoses Diarrhea R19.7 Diarrhea type: unspecified type (1) Diarrhea Diarrhea type: unspecified type Qualified Code(s): R19.7 - Diarrhea, unspecified
[2025-07-24] MEDS: POLYETHYLENE (MIRALAX) 17 GM PACK PO ONE (15:27)
[2025-07-25 00:02] VITALS: RESP 18
[2025-07-25] MEDS: NITROGLYCERIN SL 0.4 MG/TAB TAB SL STA (01:50)
[2025-07-25 02:04] LABS: Hematocrit (blood only) 34.3 % (37.0-47.0); Hemoglobin 11.3 g/dl (12.0-16.0); Immature Granulocytes # (auto) 0.09 K/uL (0.01-0.20); Immature Granulocytes % (auto) 1.0 %; Mean Corpuscular Hemoglobin 28.3 pg (25.0-34.0); Mean Corpuscular Volume 86.0 fL (80.0-100.0); Platelet Count 195 K/uL (130-400); RDW Standard Deviation 46.0 fL (36.4-46.3); Red Blood Count 3.99 M/uL (4.20-5.40); White Blood Count 9.28 K/ul (4.8-10.8)
[2025-07-25 02:22] LABS: Alanine Aminotransferase 37.0 U/L (7-52); Albumin Globulin Ratio 1.0 (0.9-2); Albumin Level 3.2 gm/dl (3.4-5.0); Alkaline Phosphatase 51.0 U/L (34-104); Anion Gap 7.0 (3-11); Bilirubin,Total 1.0 mg/dl (0.2-1.0); Blood Urea Nitrogen 17.0 mg/dl (6-23); Calcium 8.8 mg/dl (8.6-10.3); Carbon Dioxide 25.0 mmol/L (21-32); Chloride 107.0 mmol/L (98-107); Creatinine Clr Calc Pharmacy 44.5 ml/min; Globulin 3.3 gm/dl (2.5-4.0); Glucose 114.0 mg/dl (70-99(Fasting)); Potassium 3.1 mmol/L (3.5-5.1); Sodium 139.0 mmol/L (136-145); Total Protein 6.5 gm/dl (6.0-8.3)
[2025-07-25 02:37] LABS: Partial Thromboplastin Time 27 Seconds (21-31)
--- NOTE | 2025-07-25 03:09 | Communication Note ---
Date of Service: July 25, 2025 1:30 AM Patient ran call rojas and informed RN that she had slipped and fallen in the bathroom resulting in head trauma. No LOC. Patient complaining of chest pain as per RN. SBP 190s. EKG as per my interpretation rate 85, LAD, LAFB, septal infarct, no ischemia AP Chest pain secondary to uncontrolled hypertension following fall/head trauma IV hydralazine 1 dose now Nitro trial Check troponin with a.m. labs now CT head once patient comfortable Chest pain relieved by above intervention as per RN. Patient refusing endoscopy procedure in AM.
[2025-07-25 03:28] LABS: Magnesium 1.7 mg/dl (1.7-2.4)
[2025-07-25] MEDS: ACETAMINOPHEN 1,000 MG/100 ML VIAL IV STA (03:39)
--- NOTE | 2025-07-25 03:39 | XRay Report ---
EXAM: XR chest 1V portable CLINICAL HISTORY: Chest pain TECHNIQUE: An X-ray image of the chest was obtained in the AP projection. COMPARISON: 01/20/2025, CR Chest FINDINGS: Pulmonary Parenchyma: The patient is rotated. Haziness is seen in the left lung zone and at the left costophrenic angle. No pulmonary nodules are identified. There is no evidence of pleural effusion or pleural thickening on the right side. Prominent vessels are seen in the hilar and perihilar regions, and the right hilum is prominent. Heart and Mediastinum: The heart size appears enlarged. A dual chamber pacemaker is identified, with leads noted to be in place. No mediastinal widening or masses are seen. No hilar or mediastinal lymphadenopathy is present. Bony Thorax: The bony thorax appears intact without fractures or deformities. Soft Tissues: The soft tissues overlying the chest wall are unremarkable. IMPRESSION: 1. Haziness is seen in the left lung zone and at the left costophrenic angle, more conspicuous on the current examination. This may be due to cardiomegaly; however, the possibility of pleural thickening or effusion cannot be excluded. 2. Prominent vessels in the hilar and perihilar regions and a prominent right hilum are likely due to vascular congestion, with no gross interval change. Electronically signed by Eric Hill 07-25-2025 03:38 AM
[2025-07-25] MEDS: POTASSIUM CHLORIDE CRTAB 20 MEQ TABCR PO STA ×2 (03:40→08:54)
--- NOTE | 2025-07-25 04:49 | CT Scan Report ---
EXAM: CT head/brain wo con CLINICAL HISTORY: demarco, trauma TECHNIQUE: Multiple axial images were obtained from the skull base to the vertex without contrast. The CT scan was performed according to ALARA (as low as reasonably achievable). COMPARISON: 03/07/2023 07:43:31 BLENDER / COOK . FINDINGS: There is cerebral atrophy. No evidence of space-occupying lesion, hemorrhage, edema, mass effect, midline shift, extra-axial collection, or hydrocephalus is noted. The basal cisterns are symmetric and normal in size and configuration. There are scattered periventricular hypodensities, as can be seen with chronic microvascular ischemic changes. The jiménez-white matter differentiation is preserved. The visualized paranasal sinuses and mastoid air cells are well aerated. The orbital contents are within normal limits. The bony structures are intact. IMPRESSION: 1. No evidence of acute intracranial abnormality is demonstrated. 2. Chronic microvascular ischemic changes ? stable. 3. Cerebral atrophy ? stable. Electronically signed by Zhou Trivedi 07-25-2025 04:48 AM
[2025-07-25] MEDS: MAGNESIUM SULFATE / D5W 1 GM/100 ML BAG IV ONE (06:54)
--- NOTE | 2025-07-25 07:35 | Gastroenterology Progress Note ---
Date of Service July 25, 2025 Assessment & Plan (1) Diarrhea: Plan: Clinically resolving acute gastroenteritis advance diet as tolerated. (2) History of melena: Plan: Possible melena recent history of positive fecal occult blood test. No evidence of active bleeding at the present time. Hemoglobin stable. Patient refusing inpatient procedures at this time. She should follow-up with us as an outpatient to consider further workup. Admission and Anticipated Discharge Date Admission Date: July 24, 2025 Subjective Denies abdominal pain shortness of breath or chest pain. Fell last night workup in progress. Did not prep for procedures. Has decided against proceeding with the endoscopy and colonoscopy as an inpatient. Physical Exam Physical Exam: No acute distress Respiratory rate regular Cardiac rhythm regular Abdomen soft nontender Results & Data Results & Data Vital Signs (Past 12 Hours) Vital Signs Temp Pulse Resp BP Pulse Ox O2 Del Method 07/25/25 06:27 36.7 C 73 18 156/74 H 93 Room Air 07/25/25 02:40 36.6 C 85 18 182/75 H 97 Room Air 07/25/25 01:20 36.7 C 86 18 198/100 H 94 Room Air 07/24/25 23:12 36.8 C 78 18 173/78 H 92 Room Air 07/24/25 20:45 37.3 C 72 179/93 H 88 L Room Air Laboratory Results Laboratory Results - last 48 hr 07/24/25 07/25/25 07/25/25 06:59 01:47 06:38 WBC 8.38 9.28 RBC 3.83 L 3.99 L Hgb 10.9 L 11.3 L Hct 33.4 L 34.3 L MCV 87.2 86.0 MCH 28.5 28.3 MCHC 32.6 32.9 RDW Std Deviation 46.7 H 46.0 RDW Coeff of Devorah 14.6 H 14.5 Plt Count 163 195 MPV 11.9 11.3 Immature Gran % (Auto) 0.7 1.0 Neut % (Auto) 76.4 74.3 Lymph % (Auto) 10.1 11.7 [place] % (Auto) 10.9 11.1 Eos % (Auto) 1.4 1.5 Baso % (Auto) 0.5 0.4 Neut # (Auto) 6.40 6.89 H Lymph # (Auto) 0.85 L 1.09 L [place] # (Auto) 0.91 H 1.03 H Eos # (Auto) 0.12 0.14 Baso # (Auto) 0.04 0.04 Immature Gran # (Auto) 0.06 0.09 APTT 27 PTT Ratio 1.0 Sodium 142 139 Potassium 3.6 3.1 L Chloride 109 H 107 Carbon Dioxide 27 25 Anion Gap 6 7 BUN 24 H 17 Creatinine 1.04 D 1.02 Est Cr Clr Drug Dosing 43.6 44.5 eGFR 53.00 54.25 BUN/Creatinine Ratio 23.1 H 16.7 Glucose 109 H 114 H Calcium 8.6 8.8 Magnesium 1.7 Total Bilirubin 1.0 AST 26 ALT 37 Alkaline Phosphatase 51 Troponin I High Sens 14.0 14.3 H Total Protein 6.5 Albumin 3.2 L Globulin 3.3 Albumin/Globulin Ratio 1.0 Diagnostic Findings Chest X-Ray 07/25/25 01:35 EXAM: XR chest 1V portable CLINICAL HISTORY: Chest pain TECHNIQUE: An X-ray image of the chest was obtained in the AP projection. COMPARISON: 01/20/2025, CR Chest FINDINGS: Pulmonary Parenchyma: The patient is rotated. Haziness is seen in the left lung zone and at the left costophrenic angle. No pulmonary nodules are identified. There is no evidence of pleural effusion or pleural thickening on the right side. Prominent vessels are seen in the hilar and perihilar regions, and the right hilum is prominent. Heart and Mediastinum: The heart size appears enlarged. A dual chamber pacemaker is identified, with leads noted to be in place. No mediastinal widening or masses are seen. No hilar or mediastinal lymphadenopathy is present. Bony Thorax: The bony thorax appears intact without fractures or deformities. Soft Tissues: The soft tissues overlying the chest wall are unremarkable. IMPRESSION: 1. Haziness is seen in the left lung zone and at the left costophrenic angle, more conspicuous on the current examination. This may be due to cardiomegaly; however, the possibility of pleural thickening or effusion cannot be excluded. 2. Prominent vessels in the hilar and perihilar regions and a prominent right hilum are likely due to vascular congestion, with no gross interval change. Electronically signed by Eric Hill 07-25-2025 03:[address] 07/25/25 03:23 EXAM: CT head/brain wo con CLINICAL HISTORY: demarco, trauma TECHNIQUE: Multiple axial images were obtained from the skull base to the vertex without contrast. The CT scan was performed according to ALARA (as low as reasonably achievable). COMPARISON: 03/07/2023 07:43:31 SENIOR MAINTENANCE TECHNICIAN . FINDINGS: There is cerebral atrophy. No evidence of space-occupying lesion, hemorrhage, edema, mass effect, midline shift, extra-axial collection, or hydrocephalus is noted. The basal cisterns are symmetric and normal in size and configuration. There are scattered periventricular hypodensities, as can be seen with chronic microvascular ischemic changes. The jiménez-white matter differentiation is preserved. The visualized paranasal sinuses and mastoid air cells are well aerated. The orbital contents are within normal limits. The bony structures are intact. IMPRESSION: 1. No evidence of acute intracranial abnormality is demonstrated. 2. Chronic microvascular ischemic changes ? stable. 3. Cerebral atrophy ? stable. Electronically signed by Zhou Trivedi 07-25-2025 04:48 AM PG Care Time/CCT Total # of Minutes Spent Total Time Spent with Patient: Total time spent is greater than 50% in coordination of care (as documented) at patient's floor/unit and/or counseling patient: Coding Level of Care Code 25535 SUB INP/OBS CARE 2/35MIN Diagnoses Diarrhea R19.7 Diarrhea type: unspecified type History of melena Z87.19 (1) Diarrhea Diarrhea type: unspecified type Qualified Code(s): R19.7 - Diarrhea, unspecified
[2025-07-25 08:03] VITALS: BP 152/54; PULSE 76; TEMP 98.6; O2SAT 94
--- NOTE | 2025-07-25 10:18 | Gastroenterology Progress Note ---
Date of Service July 25, 2025 Assessment & Plan (1) Diarrhea: (2) Heme positive stool: Plan Patient did not wish to proceed with EGD or colonoscopy during this admission. She did not finish her bowel prep and she did eat breakfast this AM as well. She can consider outpatient scopes--I will have our office contact her to see if she wishes to arrange an EGD/colonoscopy, but patient has been very honest with us throughout this process that she may not pursue these tests. Admission and Anticipated Discharge Date Admission Date: July 24, 2025 Supervising Physician Co-Signing Physician Notes I saw and examined this patient with our nurse practitioner and agree with her assessment and plan. Plan for patient to follow-up with us as an outpatient for outpatient procedures. Subjective Patient is an 84 yo female with diarrhea, melena, and heme positive stools. Overnight, she fell while attempting a bowel prep. She did not wish to complete the bowel prep and did not want to move forward with a colonoscopy. She tells me she does not wish to move forward with an EGD either. She notes she just wants to move on and go home. She will consider outpatient procedures, but has been honest with us that she is not sure that she wishes to pursue these at all. She was given a breakfast tray this morning. Review of Systems Gastrointestinal: no abdominal pain, no diarrhea/loose stools and no blood in stools Physical Exam Constitutional: well developed Psychiatric: Orientation: alert and oriented x 3 Results & Data Results & Data Vital Signs (Past 12 Hours) Vital Signs Temp Pulse Resp BP Pulse Ox O2 Del Method 07/25/25 08:01 37 C 76 18 152/54 H 94 Room Air 07/25/25 06:27 36.7 C 73 18 156/74 H 93 Room Air 07/25/25 02:40 36.6 C 85 18 182/75 H 97 Room Air 07/25/25 01:20 36.7 C 86 18 198/100 H 94 Room Air 07/24/25 23:12 36.8 C 78 18 173/78 H 92 Room Air PG Care Time/CCT Total # of Minutes Spent Total Time Spent with Patient: Total time spent is greater than 50% in coordination of care (as documented) at patient's floor/unit and/or counseling patient: Coding Level of Care Code 58229 SUB INP/OBS CARE 1/25MIN Diagnoses Diarrhea R19.7 Heme positive stool R19.5
--- NOTE | 2025-07-25 11:16 | Discharge Summary ---
Discharge Summary Date of Service July 25, 2025 Principal Dx & Hospital Course #1 = Principal Diagnosis (1) Diarrhea: (2) Acute renal failure: (3) Chronic a-fib: (4) Tachy-shahram syndrome: (5) S/P cardiac pacemaker procedure: 84 year old female with history of Chronic Atrial Fibrillation, TBS s/p PM, HTN, HLD presenting with diarrhea and weakness x 1 week. Patient endorsed melena to author. Her daughter stated she has had heme positive stools recently which were checked by her PCP. Due to this and being on eliquis, concern for UGIB. However her Hgb has remained stable. her diarrhea has fully resolved. She was started on IV protonix. She was scheduled for EGD/colonoscopy today but patient refused. Long discussion with patient and daughter on phone. Patient was still not convinced to have it done today and wanted to go home. D/w GI who recommends EGD/colonoscopy as OP. their office will call patient to schedule. Early this AM, patient took off her hospital socks and put on her own socks. She got up to go to the bathroom and slipped and fell on the ground. She endorsed hitting her head. No LOC or vision changes or neck pain. CTH without acute pathology. After falling, she then c/o of R sided chest pain. CXR no acute pathology, HS troponin stable and low. This AM she feels very well and denies any complaints. she wishes to go home. PT/OT evaluated yesterday, will order home PT for her. vitals and labs are stable on day of discharge. she will be started on protonix daily. #Diarrhea/Melena -Started on week ago with 2 days of low grade fevers -Multiple dark tarry bowel movements per day -She took pepto bismol one day but her stools were black before taking -One day with nausea and non bloody emesis but none since -Daughter states she has had positive FOBT for the past 6 months at her PCP's office -Stool studies including C. diff negative -Unclear if this is a viral gastroenteritis vs upper GI bleed given melena -Hgb stable #DANNI on CKD3 -Cr 2.1--->1.0 -Pre renal from diarrhea/volume loss -Improved with IVF #Hypokalemia -Replace and follow -Mg reviewed, normal -SHe is on PO KCl at home, continue #Chronic Afib -Holding eliquis as above. resume ROCKY -Continue Toprol for RC #HTN -Resume hctz at home since she is on KCl suppplementation at home -Continue toprol and ARB #HLD -Resume home statin I spent a total of 42 minutes coordinating, documenting, and providing care for this patient excluding time spent in the performance of separately billed services. This included personally reviewing all current laboratories and imaging studies, medical reconciliation, outpatient chart review and discussion with specialists Notes For Next Care Provider Medication Changes From Visit Protonix added Admission HPI Per Admitting Provider 84 year old female with history of Paroxysmal Atrial Fibrillation, TBS s/p PM, HTN, HLD presenting with diarrhea and weakness x 1 week. Patient states she has been having 3-4 episodes of diarrhea/day for the last week- associated with fever last Thursday, and black stools for 1-2 days which have resolved. (+) occasional nausea, no abdominal pain (+) poor appetite She has been feeling weak to the point where she can not even go up the stairs and has been sleeping in the cough. Patient is usually active prior to this episode. No recent antibiotics prescribed. At the ER, BP 130/75, HR 75, RR 16, 95. Crea elevated at 2.15 from baseline of 1.3 On exam, patient seen sitting up in bed, comfortable, appears tired. States she feels somewhat better since receiving IV fluids. No active abdominal pain, nausea. Discharge Exam Vitals and labs reviewed General: Well appearing, NAD HEENT: EOMI, PERRLA Neck: Supple Cardiac: RRR no rubs gallops or murmurs Lungs: CTA no rhonchi wheezing or rales Abd: S NT ND BS positive : no vale MSK: Full ROM. No obvious deformities. No Paraspinal tenderness on exam Ext: No Edema cyanosis Skin: Warm, Dry Neuro: AOx3 No focal deficits. Psych: Normal Mood Updated Medication List Medication Instructions Recorded Confirmed Type apixaban 5 mg tablet (Eliquis) 5 mg PO BID 03/12/24 07/22/25 History hydrochlorothiazide 12.5 mg capsule 12.5 mg PO DAILY 03/12/24 07/22/25 History potassium citrate 10 mEq (1,080 10 meq PO Q OTHER DAY 03/12/24 07/22/25 History mg) tablet,extended release atorvastatin 40 mg tablet 40 mg PO DAILY 01/20/25 07/22/25 History losartan 50 mg tablet 50 mg PO DAILY #30 tabs 01/24/25 07/22/25 Rx metoprolol succinate 100 mg 100 mg PO BID #60 tabs 01/24/25 07/22/25 Rx tablet,extended release 24 hr conjugated estrogens 0.625 mg/gram 0.5 applic vaginal 3XWK 07/22/25 07/22/25 History vaginal cream (Premarin) pantoprazole 40 mg tablet,delayed 40 mg PO DAILY 30 days #30 tabs 07/25/25 Rx release (Protonix) Hospital Stay Data Consultations 07/22/25 13:57 ED Decision to Admit Stat 07/23/25 09:22 Consult Gastroenterology Routine Procedures Performed Operation Date: 07/25/25 16:30 <No data on this case meets the specified criteria> Diagnostic Imagining Performed 07/25/25 03:23 CT head/brain wo con Stat Pending Results Patient Have Any Pending Studies at Discharge: No Discharge Instructions Given to Patient (Per Discharging Provider) Please monitor your stools for any discoloration. If they become black or red, please stop taking your eliquis and return to ED. The GI office will call you to schedule endoscopy and colonoscopy as outpatient. Total Time Total Time Spent Total Time Spent (In Minutes): 42
== END 2025-07-25 13:27 | disposition home or self-care (01) | DRG 392 ==
LOC: 3N 12:14 → ED 12:14 → SUATTDRO 14:10 → 3N 15:26